=== PATIENT | female | born 1950 | race Caucasian/White ===

== ENCOUNTER → 2017-04-04 | Outpatient (CLI) | payer OTHER ==
[~2017-04-04] MED LIST: ASPI1TAB91 PO; BIOT1CHW PO; BUPR100T4 PO; FOLI1TAB4 PO; FOLI1TAB6 PO; HYDR-3366 PO; HYDR100P IM; HYDR5TAB64 PO; LEVO50TA4 PO; LEVO75TA3 PO; LIOT5TAB3 PO; LISI-519 PO; METF500T PO; METH2.5T PO; METO50TA PO; OMEP40CA2 PO; TEMA30CA PO; VENTAER INH; VIST25CA PO; VITA500T4 PO; ZOCO20TA PO
[2017-04-04 12:22] LABS: AUTOMATED NEUTROPHIL # 9.2 TH/MM3 (1.8-7.7); BASOPHIL % 0.1 % (0.0-2.0); EOSINOPHIL # 0.1 TH/MM3 (0-0.4); EOSINOPHIL % 0.9 % (0.0-4.0); HEMATOCRIT 35.9 % (35.0-46.0); HEMO FLAGS DIFF FINAL; LYMPH % 14.6 % (9.0-44.0); LYMPHOCYTE # 1.8 TH/MM3 (1.0-4.8); MEAN CELL VOLUME 97.3 FL (80.0-100.0); MEAN CORPUSCULAR HEMOGLOBIN 32.5 PG (27.0-34.0); MEAN CORPUSCULAR HGB CONC 33.4 % (32.0-36.0); MONO % 11.1 % (0.0-8.0); NEUT % 73.3 % (16.0-70.0); PLATELET COUNT 110 TH/MM3 (150-450); RED BLOOD COUNT 3.69 MIL/MM3 (4.00-5.30); RED CELL DISTRIBUTION WIDTH 15.9 % (11.6-17.2); WHITE BLOOD COUNT 12.6 TH/MM3 (4.0-11.0)
[2017-04-04 12:28] LABS: BACTERIA, URINE RARE /hpf; BLOOD, URINE NEG (NEG); COMMENT (UR) CULT NOT INDICATED; CULTURE IF INDICATED CULT NOT INDICATED; GLUCOSE,URINE NEG (NEG); KETONE, URINE NEG (NEG); NITRITE,URINE NEG (NEG); SQUAMOUS EPITHELIAL CELL URINE 1 /hpf (0-5); URINE COLOR YELLOW (YELLW/STRAW)
[2017-04-04 12:31] LABS: APTT (PATIENT) 25.3 SEC (24.3-30.1); PROTHROMBIN TIME - PATIENT 11.4 SEC (9.8-11.6)
[2017-04-04 12:47] LABS: ANION GAP 8 MEQ/L (5-15); BICARBONATE 27.5 MEQ/L (21.0-32.0); BLOOD UREA NITROGEN 9 MG/DL (7-18); CHLORIDE 98 MEQ/L (98-107); GLOMERULAR FILTRATION RATE 67 ML/MIN (>89); GLUCOSE,FASTING 60 MG/DL (74-99); POTASSIUM 4.7 MEQ/L (3.5-5.1); SODIUM (NA) 133 MEQ/L (136-145)
[2017-04-04 14:03] LABS: MRSA PCR NEGATIVE (NEGATIVE); STAPH AUREUS PCR NEGATIVE (NEGATIVE)
--- NOTE | 2017-04-04 14:14 | RADRPT ---
EXAM DATE/TIME: 04/04/2017 13:07 [facility] COMPARISON: No previous studies available for comparison. INDICATIONS : Pre op cardiac surgery. MEDICAL HISTORY : Rheumatoid arthritis. Osteoarthritis. Hypercholesterolemia. Hypertension. GERD. Thyroid disease. Bulg ing disk. Lumbar herniation. Brain aneurysm. Aortic stenosis. TIA. Chronic kidney disease. Diabetes. Right lunch nodule. SURGICAL HISTORY : Tonsillectomy. Hysterectomy. Right breat lumectomy. ENCOUNTER: Initial ACUITY: 1 day PAIN SCORE: 2/10 LOCATION: Bilateral neck PEAK SYSTOLIC VELOCITIES (cm/sec): ICA/CCA RATIO: Right: 2.4 Left: 1.2 ICA: Right: 100 Left: 83 CCA: Right: 42 Left: 69 ECA: Right: 0 Left: 78 VERTEBRAL: Right: 125 antegrade Left: 69 antegrade Elevated flow velocities and ICA/CCA ratios have been found to correlate with increased degrees of vessel stenosis, calculated as percentage of diameter relative to a normal segment of distal ICA/CCA FINDINGS: RIGHT CAROTID: Diffuse common carotid artery calcifications with one or plaque extending from the bulb to the origin of the internal and external carotid arteries. There is occlusion of the right external carotid arminda ry origin. There is associated increased velocities and ratio consistent with moderate, 50-69% stenos is. LEFT CAROTID: Moderate plaque extending to the origin of the internal and external carotid arteries. Flow is demons trated in the external carotid artery. There is resultant mild, less than 50%, stenosis of the consultant internship al carotid origin. VERTEBRAL ARTERIES: Antegrade flow is seen in both vertebral arteries. Asymmetrical velocities in the vertebral arteries may reflect more proximal vertebral artery lesion. MISCELLANEOUS: None. CONCLUSION: 1. Diffuse carotid artery calcifications with bulky plaque in the carotid bulbs extending to the inte rnal and external carotid artery origins. There is occlusion of the right external carotid artery. 2. Moderate, 50-69%, stenosis of the right internal carotid artery. 3. Mild, less than 50%, stenosis of the left internal carotid artery. 4. Asymmetrical vertebral artery velocities reflective of some degree of proximal vertebral artery st enosis. Paco Murphy MD on April 04, 2017 at 14:07 Board Certified Radiologist. This report was verified electronically.
--- NOTE | 2017-04-04 14:28 | RADRPT ---
EXAM DATE/TIME: 04/04/2017 13:49 [facility] COMPARISON: No previous studies available for comparison. INDICATIONS : Pre-op valve replacement. Evaluate for pneumonia, pneumothorax, and communicable diseases. MEDICAL HISTORY : None. SURGICAL HISTORY : None. ENCOUNTER: Initial ACUITY: 1 day PAIN SCORE: 0/10 LOCATION: Bilateral chest FINDINGS: PA and lateral views of the chest demonstrate the lungs to be symmetrically aerated without evidence of mass, infiltrate or effusion. The cardiomediastinal contours are unremarkable. Surgical clips in the right axilla. Osseous structures are intact. CONCLUSION: 1. No acute cardiopulmonary disease. Paco Murphy MD on April 04, 2017 at 14:26 Board Certified Radiologist. This report was verified electronically.
[2017-04-04 16:55] LABS: HEMOGLOBIN A1a 0.9 %; HEMOGLOBIN A1b 0.8 %; HEMOGLOBIN Ao 87.3 %; HEMOGLOBIN F 0.9 %; HEMOGLOBIN LA1C 1.7 %; HEMOGLOBIN P3 3.2 %
--- NOTE | 2017-04-05 14:36 | EKG ---
Date Performed: 04/04/2017 Time Performed: 11:25:54 PTAGE: 67 years EKG: Sinus rhythm NORMAL ECG PREVIOUS TRACING : 06/12/2016 12.36 DOCTOR: Robbi Paz Interpretating Date/Time 04/05/2017 14:34:03
--- NOTE | 2017-04-07 08:27 | RSPPFT ---
DATE OF PROCEDURE: 04/04/17 COMMENTS: The forced vital capacity, FEV1, FEV1/FVC ratio and FEF 25-75 are all normal. IMPRESSION: This is a normal pulmonary function study.
== END ==
LOC: CPRE 10:55
PROVIDERS: ATTEND Thoracic Surgery (Cardiothoracic Vascular Surgery)
DX: Z01.810 Encounter for preprocedural cardiovascular examination (principal); Z01.811 Encounter for preprocedural respiratory examination; Z01.812 Encounter for preprocedural laboratory examination; I35.0 Nonrheumatic aortic (valve) stenosis; E11.65 Type 2 diabetes mellitus with hyperglycemia; I50.31 Acute diastolic (congestive) heart failure
CPT/HCPCS: 36415; 71020; 80048; 81001; 83036; 85025; 85610; 85730; 86850; 86900; 86901; 87640; 87641; 93005; 93880; 94010

== ENCOUNTER → 2017-04-12 | Outpatient (CLI) | payer OTHER ==
[~2017-04-12] MED LIST changes: -FOLI1TAB4 PO; -HYDR100P IM; -HYDR5TAB64 PO; +IOHEXOL 350 MG/ML 10 ML VIAL (for RAD DIAG) IVCONTRAST ONE; -LEVO75TA3 PO; -VITA500T4 PO
--- NOTE | 2017-04-12 11:20 | RADRPT ---
EXAM DATE/TIME: 04/12/2017 09:22 [facility] COMPARISON: No previous studies available for comparison. INDICATIONS : Pre op TAVR. IV CONTRAST: 81 cc Omnipaque 350 (iohexol) IV RADIATION DOSE: 10.74 CTDIvol (mGy) MEDICAL HISTORY : Cardiovascular disease. Carcinoma, breast. SURGICAL HISTORY : Hysterectomy. Right breast lumpectomy. ENCOUNTER: Initial ACUITY: 1 day PAIN SCALE: 0/10 LOCATION: chest TECHNIQUE: Volumetric scanning was performed using a multi-row detector CT scanner. The data was post processed with a variety of visualization algorithms including full volume maximum intensity projection, multi -planar sliding thin slab reformation, curved planar reformation, and surface rendering techniques. Using automated exposure control and adjustment of the mA and/or kV according to patient size, radiat ion dose was kept as low as reasonably achievable to obtain optimal diagnostic quality images. DIC OM format image data is available electronically for review and comparison. FINDINGS: CARDIAC: Left main and LAD calcifications are noted, significant in the LAD. Moderate mid circumflex disease. Small right coronary moderate right mid coronary disease. AORTIC ROOT/VALVE: Calcification present at the aortic root diameter 2.6 cm. THORACIC AORTA: Calcification at the origin of the right innominate and left subclavian. Not felt to be hemodynamica lly significant. ABDOMINAL AORTA: Moderate plaque distal aorta extending into both iliac bifurcations. The celiac and SMA are widely p atent. 2 renal arteries on the right, one on the left. The distal aorta measures 1.3 cm x 1.2 cm an d is densely calcified. RIGHT COMMON ILIAC: The right common iliac is small, densely calcified with the 5 mm lumen. The external iliac is small measuring 4 mm. The right common femoral is all but occluded. LEFT COMMON ILIAC: Similar findings are present on the left the densely calcified common iliac. Similar findings are se en in the external iliac and common femoral the left. THORAX: 1.5 cm suspicious consolidative area left lung. The right lung is clear. ABDOMEN: The liver, spleen, pancreas, adrenals and kidneys are unremarkable PELVIS: Diverticuli sigmoid colon. CONCLUSION: Tenuous percutaneous access from below with small common femorals to distal aorta. Inflow to the low er extremities his tenuous worse on the right. 1.5 cm suspicious consolidative area left lung, infiltrate versus neoplasm. No prior films of compar kezia. Kyle Kaur MD FACR on April 12, 2017 at 11:06 Board Certified Radiologist. This report was verified electronically.
== END ==
LOC: HRAD 08:18
PROVIDERS: ATTEND Thoracic Surgery (Cardiothoracic Vascular Surgery)
DX: I35.0 Nonrheumatic aortic (valve) stenosis (principal); I50.30 Unspecified diastolic (congestive) heart failure
CPT/HCPCS: 74174; Q9967; 76937

== ENCOUNTER 2017-05-17 09:53 | Inpatient (IN) | payer OTHER, MEDICARE ==
[~2017-05-17] VITALS: Ht 152.4 cm; Wt 64.3 kg
[~2017-05-17 09:53] MED LIST changes: -ASPI1TAB91 PO; +ASPI81TA16 PO; -IOHEXOL 350 MG/ML 10 ML VIAL (for RAD DIAG) IVCONTRAST ONE
[2017-05-17] MEDS ORDERED: MUPIROCIN 2% OINT 1 APPLIC/GM SYRINGE EACH NARE PRN (10:15)
[2017-05-17] MEDS ORDERED: SODIUM CHLOR 0.9% 1000 ML 1,000 ML IV SCH (10:15)
[2017-05-17] MEDS ORDERED: ASPIRIN 325 MG TAB PO SCH (10:15)
[2017-05-17] MEDS ORDERED: CHLORHEXIDINE GLUCONATE 2 % 1 PACK (2 CLOTHS) TOPICAL PRN (10:15)
[2017-05-17] MEDS ORDERED: ceFAZolin 2 GM PREMIX 50 ML IV PRN (10:15)
[2017-05-17] MEDS ORDERED: POVIDONE IODINE 5% (ANTISEPSIS KIT) EACH NARE PRN (10:15)
[2017-05-17 10:18] VITALS: BP 170/68; PULSE 61; RESP 18; TEMP 97.9; O2SAT 99
[2017-05-17] MEDS ORDERED: SPIR25TA PO (10:25)
[2017-05-17] MEDS ORDERED: MECL-62 PO (10:25)
[2017-05-17] MEDS ORDERED: ATOR40TA16 PO (10:25)
[2017-05-17] MEDS ORDERED: VENL75CA44 PO (10:25)
[2017-05-17 10:57] LABS: AUTOMATED NEUTROPHIL # 4.1 TH/MM3 (1.8-7.7); BASOPHIL % 0.6 % (0.0-2.0); EOSINOPHIL # 0.1 TH/MM3 (0-0.4); EOSINOPHIL % 1.2 % (0.0-4.0); HEMO FLAGS DIFF FINAL; LYMPH % 28.6 % (9.0-44.0); MEAN CELL VOLUME 98.5 FL (80.0-100.0); MEAN CORPUSCULAR HEMOGLOBIN 33.1 PG (27.0-34.0); MEAN CORPUSCULAR HGB CONC 33.6 % (32.0-36.0); MONO % 10.1 % (0.0-8.0); NEUT % 59.5 % (16.0-70.0); PLATELET COUNT 133 TH/MM3 (150-450); RED BLOOD COUNT 3.96 MIL/MM3 (4.00-5.30); WHITE BLOOD COUNT 6.9 TH/MM3 (4.0-11.0)
[2017-05-17 11:08] LABS: APTT (PATIENT) 26.6 SEC (24.3-30.1); PROTHROMBIN TIME - PATIENT 11.3 SEC (9.8-11.6)
[2017-05-17 11:18] LABS: BICARBONATE 29.6 MEQ/L (21.0-32.0)
--- NOTE | 2017-05-17 11:19 | MH ---
cc: GENARO DOWNEY DATE OF ADMISSION: 05/17/2017 DATE OF : 1950 REASON FOR ADMISSION Elective transcutaneous aortic valve replacement. HISTORY OF PRESENT ILLNESS 67-year-old female with past medical history significant for atrial fibrillation on chronic oral anticoagulation, COPD, rheumatoid arthritis on methotrexate, severe peripherovascular disease and severe aortic stenosis. The patient for the last couple of months has been having progressing complaints of shortness of breath on minimal exertion. She has a known history of a cardiac murmur and has been evaluated by Dr. Salinas. She underwent an echocardiogram which revealed severe aortic stenosis and cardiac catheterization demonstrated normal coronary arteries. She was referred to CT surgery for conventional AVR and after thorough evaluation by Dr. Iyer she was deemed to be a poor AVR candidate given STS score, co-morbidities, severe PAD and methotrexate dependent RA. Thus she is here today for a TAVR. REVIEW OF SYSTEMS Negative except for what is mentioned in the HPI. PAST MEDICAL HISTORY 1. Atrial fibrillation. 2. Anxiety. 3. Aortic stenosis. 4. Chronic pain syndrome. 5. Cerebrovascular disease. 6. COPD. 7. Depression. 8. Diabetes mellitus. 9. GERD. 10. Hyperlipidemia. 11. Hypothyroidism. 12. Mitral regurgitation. 13. Osteoarthritis. 14. Rheumatoid arthritis. 15. Sleep apnea. PAST SURGICAL HISTORY 1. Atrial fibrillation status post ablation. 2. Appendectomy. 3. Breast lumpectomy. 4. Cataract removal. 5. Cholecystectomy. 6. Hysterectomy. 7. Tonsillectomy. ALLERGIES CODEINE. SOCIAL HISTORY Former smoker. Denies alcohol use or illicit drug use. FAMILY HISTORY No pertinent family history. PHYSICAL EXAMINATION VITAL SIGNS: Temperature 97, respiratory rate 20, heart rate 17, blood pressure 120/80. O2 sat 100% on room air. GENERAL: Awake, alert, oriented x3, in no acute distress. NECK: No JVD. No carotid bruits. HEART: Regular rate and rhythm. There is a 3/6 systolic ejection murmur with late-peaking radiating to the carotids. LUNGS: Clear to auscultation bilaterally. ABDOMEN: Benign. EXTREMITIES: No cyanosis or edema. Pulses throughout. TAVR WORK-UP -STS score of 3%, and frailty 1/4. -EKG normal sinus rhythm. -PFTs normal. -Echocardiogram shows an aortic valve velocity of 4.1, mean gradient of 48, calculated valve area of 0.73, ejection fraction 60%. -Left heart cath showed nonobstructive coronary artery disease. -TAVR CTA shows a short annulus diameter of 19, a long annulus diameter of 23, an area of 348 and a perimeter of 66.5. The sinus of Valsalva diameter is 30. The STJ is 25. Both coronary heights are more than 10. She has a trileaflet aortic valve. There is no calcification in the LVOT or the STJ. -Iliacs: There is significant PAD with a minimal luminal diameter on the left of 3.4 and on the right of 3. -Subclavian: The left subclavian artery is an adequate size vessel with a minimal diameter of 5.8 and minimal calcification. ASSESSMENT AND PLAN 67-year-old female with a history of severe symptomatic aortic stenosis with NYHA III sx, presented today for elective alternative access transcutaneous aortic valve replacement. After thorough evaluation she was deemed to be an intermediate risk for open AVR and was scheduled for TAVR. The risks and benefits of TAVR including but not limited to neurovascular trauma, bleeding, acute kidney injury, stroke, permanent pacemaker placement and have been explained to the patient. The patient understands the risks and she is willing to proceed. Plan: -26mm Medtronic R valve -Left subclavian Access Genaro Downey MD, MPH, [facility] BIOMEDICAL EQUIPMENT TECHNICIAN/BT /10:49 AM /11:00 AM [facility]
[2017-05-17 11:22] LABS: POTASSIUM 4.8 MEQ/L (3.5-5.1)
[2017-05-17] MEDS ORDERED: HEPARIN-NS/PF INJ 1,500 ML ONE (12:35)
[2017-05-17] MEDS ORDERED: IOHEXOL 350 MG/ML 100 ML BTL (for RAD DIAG) OTHER ONE (13:42)
[2017-05-17] MEDS ORDERED: METFORMIN HOLD POST IV CONTRAST SCH (13:42)
[2017-05-17] MEDS ORDERED: BUPIVACAINE HCL PF 0.5% 10 ML VIAL INFIL ONE (15:05)
[2017-05-17 15:30] VITALS: BP 83/52; PULSE 94; RESP 12; TEMP 97.8; O2SAT 99
--- NOTE | 2017-05-17 15:54 | PD.OP ---
cc: Delio Vidales MD; Evan Goodwin MD; Mary Iyer MD; Robbi Paz MD Operative Report Date of Surgery: May 17, 2017 Preoperative Diagnosis: (1) Aortic stenosis (2) Diastolic CHF due to valvular disease Postoperative Diagnosis: same Procedure: Transcatheter aortic valve replacement with a 26 Evolut R Corevalve Left subclavian artery approach and cutdown Right femoral arterial and venous percutaneous access Aortography Fluoroscopy Anesthesia: Dr. Harvey Surgeon: Mary Iyer Co-surgeon - Dr. Elder General Pediatrician(s): Dr. Jackson Goodwin Operation and Findings: The risks, benefits, complications, treatment options, and expected outcomes were discussed with the patient. The possibilities of reaction to medication, pulmonary aspiration, perforation of viscus, bleeding, recurrent infection, the need for additional procedures, failure to diagnose a condition, and creating a complication requiring transfusion or operation were discussed with the patient. The patient concurred with the proposed plan, giving informed consent. The site of surgery properly noted/marked. The patient was taken to hybrid operating room, identified as Berenice Rosario and the procedure verified as Transcatheter Aortic Valve Replacement. A Time Out was held and the above information confirmed. Standard monitoring lines and Ro catheter were placed. General anesthesia was induced. The patient was prepped and draped in a sterile fashion. Initially, right femoral arterial and venous access was acquired using a Seldinger percutaneous technique. The details of this procedure were dictated under separate note by cardiology. Once a temporary transvenous pacemaker wire was placed in the right ventricular apex and tested, a left subclavian cut down was performed. Electrocautery was used to obtain hemostasis and carry the dissection down through the subcutaneous tissue. The left subclavian artery was isolated proximally and distally. A separate counter incision was performed distally to allow for better angulation and orientation of the sheath and delivery device for the valve. The patient was heparinized such that the ACT was greater than 300 second. A pigtail was placed in the non coronary cusp through the right femoral artery. The implant angle was defined using aortography. The left subclavian artery was accessed using a needle followed by a guidewire under fluoroscopic guidance. A 12F sheath was inserted followed by a wire exchange with an Aplatz super stiff wire. The sheath was then exchanged for a AL1 catheter to cross the aortic valve. Once the valve was crossed, a Confida wire was placed in the LV apex. The Corevalve delivery system and sheath were then inserted into the left subclavian artery under fluoroscopic guidance. A 26 Corevalve Evolut R transcatheter aortic valve was then positioned in the annulus and deployed with the patient being paced at 120 beats per minute. Following deployment, the valve apparatus was withdrawn and arch aortography and VARUN were performed to assess the valve. The valve had no significant perivalvular leaks. Gradients were then measured and the sheath was slowly withdrawn to the proximal subclavian artery under fluoroscopic guidance. The sheath was withdrawn under direct vision and the left subclavian artery was clamped. The artery was then repaired using a 5-0 Prolene suture. Flow was then re-established and protamine was administered. The subcutaneous tissue was closed using a running 2-0 Vicryl suture. The skin was closed with 4-0 Monocryl. Sterile dressings were placed. At the end of the operation, all sponge, instruments, and needle counts were correct. The patient was transferred to the CVICU in stable condition. Implants: 26 Corevalve Evolut R tissue valve Complications: none Disposition: to CVICU in stable condition Mary Iyer MD May 17, 2017 15:54
[2017-05-17 16:00] VITALS: BP 112/67; PULSE 93; PULSE 94; RESP 12; TEMP 97.7; O2SAT 99
[2017-05-17] MEDS ORDERED: MISC INFORMATION OTHER ONE (16:00)
[2017-05-17] MEDS ORDERED: SODIUM CHLOR 0.9% 1000 ML INJ 1,000 ML IV SCH (16:00)
[2017-05-17] MEDS ORDERED: CLOPIDOGREL 300 MG TAB PO ONE ×2 (16:00→16:15)
[2017-05-17] MEDS ORDERED: GLUCAGON 1 MG/ML VIAL OTHER PRN (16:00)
[2017-05-17] MEDS ORDERED: ACETAMINOPHEN 325 MG TAB PO PRN (16:00)
[2017-05-17] MEDS ORDERED: DEXTROSE 50% IN WATER 50 ML VIAL(D50) IV PUSH PRN (16:00)
[2017-05-17] MEDS: ASPIRIN 81 MG CHEW TAB PO SCH (16:15)
[2017-05-17] MEDS: ACETAMINOPHEN/HYDROcodone 325 MG/10 MG TAB PO SCH ×2 (16:43→21:42)
--- NOTE | 2017-05-17 17:04 | PD.PROCEDR ---
Procedure Note Procedure Procedure: Transesophageal Echocardiography Diagnosis: Severe aortic stenosis Indications: Perioperative planning for transfer catheter aortic valve replacement Consent: Obtained Anesthesia: General endotracheal anesthesia Description of the Procedure: The patient was sedated and mechanically ventilated. The echo probe was inserted easily and without resistance. At the conclusion of the procedure, the echo probe was removed. Please see detailed echocardiogram report for formal findings. Preliminary Findings (not confirmed): Pre-procedure: 1) Normal biventricular function 2) Severe aortic stenosis 3) mild aortic regurgitation 4) mild mitral regurgitation 5) continuous [id number] intra-atrial shunt by color flow Doppler. 6) no pericardial effusion Post-procedure: 1) s/p successful placement of transcatheter aortic valve 2) no evidence of bioprosthetic valve stenosis 3) no perivalvular leak 4) [id number] mitral regurgitation 5) normal biventricular function 6) no pericardial effusion 7) views of the ascending, arch, and descending aorta without evidence of dissection. The patient tolerated the procedure well. There were no immediate complications noted. I personally performed the procedure. Dennis Rubin MD May 17, 2017 17:04
--- NOTE | 2017-05-17 17:19 | PD.CONS ---
[facility] Service Critical Care Medicine Consult Requested By Dr. Elder Reason for Consult perioperative management of comorbid medical conditions Primary Care Physician Non-Staff History of Present Illness This is a 67-year-old female with a past medical history of atrial fibrillation , COPD, rheumatoid arthritis, and severe symptomatically or stenosis. She presents for elective transcatheter aortic valve replacement. Placement was performed via left subclavian cutdown with subclavian artery access for valve replacement. In addition, a small right femoral artery access was used for pigtail catheter. Intraoperative events were complicated. She arrives to the CVICU extubated, arousing from anesthesia. Due to her also from anesthesia no additional information is obtainable from the patient. Review systems is unobtainable due to her somnolence. Review of Systems ROS Limitations: Clinical Condition, Altered Mental Status ROS Arousing from anesthesia Past Family Social History Allergies: Coded Allergies: codeine (Unverified Allergy, Severe, 05/17/17) Past Medical History Atrial fibrillation Anxiety Aortic stenosis Chronic pain syndrome Cerebrovascular disease COPD Depression Diabetes GERD Hyperlipidemia Hypothyroidism Mitral regurgitation Osteoarthritis Rheumatoid arthritis Sleep apnea Past Surgical History Atrial fibrillation Appendectomy Breast lumpectomy Cataract surgery Cholecystectomy Hysterectomy Tonsillectomy Reported Medications Venlafaxine ER 24 HR (Venlafaxine HCl) 75 Mg Cap 75 Mg PO DAILY Spironolactone 25 Mg Tab 25 Mg PO DAILY Meclizine (Meclizine HCl) 25 Mg Tab 25 Mg PO TID PRN Atorvastatin (Atorvastatin Calcium) 40 Mg Tab 40 Mg PO HS Metformin (Metformin HCl) 500 Mg Tab 500 Mg PO BIDPC Levothyroxine (Levothyroxine Sodium) 50 Mcg Tab 50 Mcg PO DAILY Folic Acid 1 Mg Tablet 1 Mg PO DAILY Aspirin Adult Low Strength (Aspirin) 81 Mg Tabdr 81 Mg PO DAILY Omeprazole 40 Mg Cap 40 Mg PO DAILY [place] (Hydrocodone-Acetaminophen) 10-325 Mg Tab 1 Tab PO QID Bupropion HCl 100 Mg Tab 100 Mg PO BID Ventolin Hfa 18 GM Inh (Albuterol Sulfate) 90 Mcg/Act Aer 2-3 Puff INH Q6H PRN Temazepam 30 Mg Cap 30 Mg PO HS Methotrexate 2.5 Mg Tab 20 Mg PO WEEKLY Lisinopril 5 Mg Tab 5 Mg PO DAILY Active Ordered Medications See MAR Family History Reviewed in the chart and found be noncontributory to her acute illness Social History Former smoker. Denies EtOH Physical Exam Vital Signs Vital Signs Date Time Temp Pulse Resp B/P (MAP) Pulse Ox O2 Delivery O2 Flow Rate FiO2 05/17/17 10:18 97.9 61 18 170/68 (102) 99 Physical Exam GENERAL: Elderly female, lying in bed, arousing from anesthesia, no acute distress HEENT: Normocephalic. Atraumatic. Pupils equal, round, reactive, conjugate. Mucous membranes are moist NECK: Trachea is midline. There is no JVD. Right IJ sheath with transvenous pacer in place CHEST: Small incision over left anterior chest just underneath the clavicle which is clean dry and intact. Nasal cannula oxygen. Unlabored. Equal chest rise. CARDIOVASCULAR: Normal rate, regular rhythm. ABDOMEN: Soft, nontender, nondistended. No guarding. MUSCULOSKELETAL: Pulses 2+. No peripheral edema. Right groin with dressing intact, no evidence of hematoma NEUROLOGICAL: RASS -2. Arousing from anesthesia. Moves all extremities. No focal deficits. Laboratory Laboratory Tests Test 05/17/17 10:30 White Blood Count 6.9 Red Blood Count 3.96 Hemoglobin 13.1 Hematocrit 39.0 Mean Corpuscular Volume 98.5 Mean Corpuscular Hemoglobin 33.1 Mean Corpuscular Hemoglobin Concent 33.6 Red Cell Distribution Width 15.0 Platelet Count 133 Mean Platelet Volume 10.6 Neutrophils (%) (Auto) 59.5 Lymphocytes (%) (Auto) 28.6 Monocytes (%) (Auto) 10.1 Eosinophils (%) (Auto) 1.2 Basophils (%) (Auto) 0.6 Neutrophils # (Auto) 4.1 Lymphocytes # (Auto) 2.0 Monocytes # (Auto) 0.7 Eosinophils # (Auto) 0.1 Basophils # (Auto) 0.0 CBC Comment DIFF FINAL Differential Comment Prothrombin Time 11.3 Prothromb Time International Ratio 1.0 Activated Partial Thromboplast Time 26.6 Blood Urea Nitrogen 10 Creatinine 0.76 Random Glucose 83 Calcium Level 9.1 Sodium Level 135 Potassium Level 4.8 Chloride Level 100 Carbon Dioxide Level 29.6 Anion Gap 5 Estimat Glomerular Filtration Rate 76 Result Diagram: 05/17/17 1030 05/17/17 1030 Assessment and Plan Assessment and Plan Assessment: 67-year-old female postop day 0 status post transcutaneous aortic valve replacement. We'll admit to ICU and monitor closely overnight. s/p TAVR 05/17 with left subclavian access - neurovascular checks - close uop monitoring - mivf - anticoagulation per Dr. Eledr. Hypertension - goal sbp 120 - 180. - add back anti-hypertensives as needed - hold Lisinopril - hold spironolactone COPD - prn nebs - aggressive pulmonary toilet - wean fio2 for goal spo2 > 90% Hyperlipidemia - continue home statin Depression - continue home Wellbutrin - continue home Effexor Chronic pain syndrome - continue home [place]. may require increased opiate pain medication to cover new acute pain. Hypothyroidism - continue home Synthroid GERD - continue ppi Diabetes Mellitus - SSI if needed. - hold metformin. Critical care medicine will continue to follow patient while in the CVICU. Dennis Rubin MD May 17, 2017 17:19
[2017-05-17] MEDS ORDERED: MECLIZINE HCL 25 MG TAB PO PRN (18:00)
[2017-05-17 19:03] LABS: POTASSIUM 4.4 MEQ/L (3.5-5.1)
[2017-05-17 20:00] VITALS: BP 113/64; PULSE 94; RESP 20; TEMP 98.2; O2SAT 98
--- NOTE | 2017-05-17 20:23 | MB ---
cc: SRINIVAS AGUSTIN M.D. DATE OF CONSULTATION 05/17/2017 Electrophysiology consult REASON FOR CONSULTATION Intraventricular conduction delay, status post TAVR for evaluation. HISTORY OF THE PRESENT ILLNESS Mrs. Rosario is a 67-year-old female with history of atrial fibrillation, aortic stenosis, previous CVA, diabetes mellitus, high blood pressure, hyperlipidemia, status post elective transcutaneous aortic valve replacement. She has some interventricular conduction delay. She has temporary pacemaker. I was consulted for evaluation and management. The chart was reviewed. The patient was evaluated. ALLERGIES CODEINE. SOCIAL HISTORY Negative for smoking and drinking. FAMILY HISTORY Noncontributory to her current medical condition. MEDICATIONS Patient is currently on: 1. Ancef. 2. Aspirin 325 mg a day. 3. Lipitor 40 mg at bedtime. 4. Wellbutrin 100 milligrams twice a day. 5. Plavix 75 milligrams daily. 6. Folic acid. 7. Levoxyl 50 micrograms a day. 8. Meclizine. 9. Effexor 75 milligrams daily. REVIEW OF SYSTEMS Currently she refers no chest pain. She refers right shoulder pain in a left the right shoulder pain, but no fever. PHYSICAL EXAMINATION GENERAL: Alert, fully oriented. VITAL SIGNS: Her blood pressure currently is on the monitor is 110/67, pulse 86, respiratory rate 18. LUNGS: Ventilated. CARDIOVASCULAR: S1-S2 regular. No gallop or murmur. The right infraclavicular area with a central line access. ABDOMEN: Soft. No mass. No bruits. EXTREMITIES: No edema. Electrocardiogram sinus rhythm and apparent first-degree AV block. No significant ST and T-wave changes. LABORATORY DATA Hemoglobin is 13.1, white blood cell 6.9. Potassium 4.8. Creatinine 0.76. INR 1.0. ASSESSMENT AND RECOMMENDATIONS Mrs. Rosario had recent TAVR. She is in sinus rhythm. No significant interventricular conduction delay. No bundle-branch block. She has a temporary pacemaker. I did reprogram the device to VVI 40 and increase the sensing. For now observation. If stable remove the temporary pacer in the morning. Further decision and management by the managing team. Case discussed with the patient's family. My recommendation is to continue with current management. No need for pacemaker. I will follow her during hospitalization if necessary. MD EVE CeeKK /5:37 PM /8:02 PM
[2017-05-17] MEDS ORDERED: ATORVASTATIN 40 MG TAB PO SCH (21:00)
[2017-05-17] MEDS: buPROPion HCL 100 MG TAB PO SCH (21:48)
[2017-05-17 22:03] VITALS: O2SAT 97
[2017-05-18] VITALS (9 sets, daily range): BP systolic 99–122; BP diastolic 50–69; PULSE 77–92; RESP 16–20; TEMP 98.1–98.6; O2SAT 95–99
[2017-05-18 04:32] LABS: HEMATOCRIT 27.8 % (35.0-46.0); MEAN CELL VOLUME 97.9 FL (80.0-100.0); MEAN CORPUSCULAR HEMOGLOBIN 33.2 PG (27.0-34.0); MEAN CORPUSCULAR HGB CONC 33.9 % (32.0-36.0); PLATELET COUNT 76 TH/MM3 (150-450); RED BLOOD COUNT 2.84 MIL/MM3 (4.00-5.30); RED CELL DISTRIBUTION WIDTH 15.1 % (11.6-17.2); WHITE BLOOD COUNT 6.7 TH/MM3 (4.0-11.0)
[2017-05-18 04:38] LABS: REVIEW FLAG FINAL
[2017-05-18 04:51] LABS: ALT (GPT) 76 U/L (10-53); ANION GAP 10 MEQ/L (5-15); AST (GOT) 67 U/L (15-37); BICARBONATE 25.1 MEQ/L (21.0-32.0); BLOOD UREA NITROGEN 7 MG/DL (7-18); CHLORIDE 101 MEQ/L (98-107); GLOMERULAR FILTRATION RATE 76 ML/MIN (>89); POTASSIUM 4.3 MEQ/L (3.5-5.1); SODIUM (NA) 136 MEQ/L (136-145)
[2017-05-18 04:53] LABS: ALKALINE PHOSPHATASE 52 U/L (45-117); TOTAL BILIRUBIN ADULT 0.4 MG/DL (0.2-1.0)
[2017-05-18] MEDS ORDERED: LEVOTHYROXINE SODIUM 50 MCG TAB PO SCH (06:00)
--- NOTE | 2017-05-18 07:52 | PD.CARD.PN ---
Subjective Subjective Remarks no overnight events occasional PVC's EKG unchanged this AM No CV complaints Objective Medications Current Medications Medications (Trade) Dose Ordered Sig/Leif Route Start Time Stop Time Status Last Admin Cefazolin Sodium/ Dextrose 50 ml @ 100 mls/hr [employer] PRN IV 05/17/17 10:15 05/20/17 10:14 05/17/17 13:30 (Betadine 5% Antisepsis Kit) 1 applic [employer] PRN EACH NARE 05/17/17 10:15 05/20/17 10:14 05/17/17 11:15 (Bactroban Nasal 2% Oint) 1 applic [employer] PRN EACH NARE 05/17/17 10:15 05/20/17 10:14 (Chlorhexidine 2% Cloth) 3 pack [employer] PRN TOPICAL 05/17/17 10:15 05/20/17 10:14 05/17/17 11:15 (Aspirin) 325 mg [employer] PO 05/17/17 10:15 05/20/17 10:14 05/17/17 11:15 (Tylenol) 650 mg Q4H PRN PO 05/17/17 16:00 05/18/17 15:59 (Aspirin Chew) 81 mg DAILY PO 05/17/17 16:00 05/17/17 16:15 (Plavix) 75 mg DAILY PO 05/18/17 09:00 (D50w (Vial) Inj) 50 ml UNSCH PRN IV PUSH 05/17/17 16:00 (Glucagon Inj) 1 mg UNSCH PRN OTHER 05/17/17 16:00 (Lipitor) 40 mg HS PO 05/17/17 21:00 05/17/17 21:43 (Wellbutrin) 100 mg BID PO 05/17/17 21:00 05/17/17 21:48 (Folate) 1 mg DAILY PO 05/18/17 09:00 (Mcgregor 10-325 Mg) 1 tab QID PO 05/17/17 18:00 05/17/17 21:42 (Synthroid) 50 mcg DAILY@0600 PO 05/18/17 06:00 05/18/17 05:43 (Antivert) 25 mg TID PRN PO 05/17/17 18:00 (Effexor Xr) 75 mg DAILY PO 05/18/17 09:00 (Protonix) 40 mg DAILY PO 05/18/17 09:00 Miscellaneous Information HOLD METFORMIN FOR... Q24H .XX 05/17/17 13:42 05/19/17 13:41 Vital Signs / I&O Vital Signs Date Time Temp Pulse Resp B/P (MAP) Pulse Ox O2 Delivery O2 Flow Rate FiO2 05/18/17 06:00 96 Room Air 05/18/17 04:00 92 05/18/17 04:00 94 Nasal Cannula 1.00 05/18/17 04:00 98.1 77 20 99/50 (66) 98 05/18/17 00:00 92 05/18/17 00:00 99 Nasal Cannula 2.00 05/18/17 00:00 92 18 99/56 (70) 99 05/17/17 22:42 18 05/17/17 22:03 97 Nasal Cannula 2.00 05/17/17 20:00 98.2 94 20 113/64 (80) 98 05/17/17 20:00 98 Nasal Cannula 2.00 05/17/17 20:00 94 05/17/17 16:00 94 05/17/17 16:00 94 05/17/17 16:00 99 Nasal Cannula 2.00 05/17/17 16:00 97.7 93 12 112/67 (82) 99 05/17/17 15:30 97.8 94 12 83/52 (62) 99 05/17/17 10:18 97.9 61 18 170/68 (102) 99 I/O 05/17/17 05/17/17 05/17/17 05/18/17 05/18/17 05/18/17 07:00 15:00 23:00 07:00 15:00 23:00 Intake Total 5036 ml 2039 ml Output Total 740 ml 2280 ml Balance 4296 ml -241 ml Intake Oral 240 ml 1400 ml IV Total 1296 ml 639 ml Other 3500 ml Output Urine Total 730 ml 2280 ml Estimated Blood Loss 10 ml # Bowel Movements 0 Physical Exam GENERAL: Well-nourished, well-developed patient. SKIN: Warm and dry. HEAD: Normocephalic. EYES: No scleral icterus. No injection or drainage. NECK: Supple, trachea midline. No JVD or lymphadenopathy. CARDIOVASCULAR: Regular rate and rhythm without murmurs, gallops, or rubs. Bilateral rales RESPIRATORY: Breath sounds equal bilaterally. No accessory muscle use. GASTROINTESTINAL: Abdomen soft, non-tender, nondistended. EXTREMITIES: No cyanosis, or +edema. NEUROLOGICAL: Awake, alert, and oriented x 3. Non-focal. Laboratory Laboratory Tests Test 05/17/17 10:30 05/17/17 18:30 05/18/17 04:10 White Blood Count 6.9 TH/MM3 6.7 TH/MM3 Red Blood Count 3.96 MIL/MM3 2.84 MIL/MM3 Hemoglobin 13.1 GM/DL 9.4 GM/DL Hematocrit 39.0 % 27.8 % Mean Corpuscular Volume 98.5 FL 97.9 FL Mean Corpuscular Hemoglobin 33.1 PG 33.2 PG Mean Corpuscular Hemoglobin Concent 33.6 % 33.9 % Red Cell Distribution Width 15.0 % 15.1 % Platelet Count 133 TH/MM3 76 TH/MM3 Mean Platelet Volume 10.6 FL 10.1 FL Neutrophils (%) (Auto) 59.5 % Lymphocytes (%) (Auto) 28.6 % Monocytes (%) (Auto) 10.1 % Eosinophils (%) (Auto) 1.2 % Basophils (%) (Auto) 0.6 % Neutrophils # (Auto) 4.1 TH/MM3 Lymphocytes # (Auto) 2.0 TH/MM3 Monocytes # (Auto) 0.7 TH/MM3 Eosinophils # (Auto) 0.1 TH/MM3 Basophils # (Auto) 0.0 TH/MM3 CBC Comment DIFF FINAL Differential Comment Prothrombin Time 11.3 SEC Prothromb Time International Ratio 1.0 RATIO Activated Partial Thromboplast Time 26.6 SEC Blood Urea Nitrogen 10 MG/DL 9 MG/DL 7 MG/DL Creatinine 0.76 MG/DL 0.56 MG/DL 0.76 MG/DL Random Glucose 83 MG/DL 124 MG/DL 173 MG/DL Calcium Level 9.1 MG/DL 7.5 MG/DL 7.9 MG/DL Sodium Level 135 MEQ/L 136 MEQ/L 136 MEQ/L Potassium Level 4.8 MEQ/L 4.4 MEQ/L 4.3 MEQ/L Chloride Level 100 MEQ/L 101 MEQ/L 101 MEQ/L Carbon Dioxide Level 29.6 MEQ/L 25.0 MEQ/L 25.1 MEQ/L Anion Gap 5 MEQ/L 10 MEQ/L 10 MEQ/L Estimat Glomerular Filtration Rate 76 ML/MIN 109 ML/MIN 76 ML/MIN Total Protein 5.0 GM/DL Albumin 2.6 GM/DL Alkaline Phosphatase 52 U/L Aspartate Amino Transf (AST/SGOT) 67 U/L Alanine Aminotransferase (ALT/SGPT) 76 U/L Total Bilirubin 0.4 MG/DL Assessment and Plan Problem List: (1) Aortic stenosis ICD Codes: I35.0 - Nonrheumatic aortic (valve) stenosis Plan: 67 y/o F s/p Left Subclavian TAVR with a 26mm Evolut R. Afebrile and hemodynamically stable. Acute on chronic diastolic heart failure on exam. Drop in H/H dilutional. Will give IV Lasix this AM. Appreciate EP f/u and recs no tachy or fredy arrhythmias. Plan: 1. IV Lasix 20mg IV 2. PT/OT 3. Cont ASA and Plavix 4. D/C TPM 5. D/C Art Line 6. D/C IJ 7. Encourage ambulation and incentive spirometry 8. Tx to stepdown unit (2) Diastolic CHF due to valvular disease ICD Codes: I38 - Endocarditis, valve unspecified; I50.30 - Unspecified diastolic (congestive) heart failure (3) Anxiety associated with depression ICD Codes: F41.8 - Other specified anxiety disorders Status: Acute Problem Qualifiers (1) Aortic stenosis: Qualified Codes: I06.0 - Rheumatic aortic stenosis Delio Vidales MD May 18, 2017 07:51
[2017-05-18] MEDS: ACETAMINOPHEN/HYDROcodone 325 MG/10 MG TAB PO SCH ×2 (08:07→13:57)
[2017-05-18] MEDS: ASPIRIN 81 MG CHEW TAB PO SCH (08:09)
[2017-05-18] MEDS: buPROPion HCL 100 MG TAB PO SCH (08:09)
[2017-05-18] MEDS ORDERED: FUROSEMIDE 20 MG/2 ML VIAL IV PUSH ONE (08:45)
[2017-05-18] MEDS ORDERED: PANTOPRAZOLE SOD 40 MG DELAYED RELEASE TAB PO SCH (09:00)
[2017-05-18] MEDS ORDERED: CLOPIDOGREL 75 MG TAB PO SCH (09:00)
[2017-05-18] MEDS ORDERED: VENLAFAXINE HCL XR 75 MG CAP PO SCH (09:00)
[2017-05-18] MEDS ORDERED: FOLIC ACID 1 MG TAB PO SCH (09:00)
--- NOTE | 2017-05-18 14:03 | ECHRPT ---
Indication: EF assessment of CHF CONCLUSIONS Normal left ventricular size. Mild concentric left ventricular hypertrophy. The left ventricular systolic function is hyperdynamic with an estimated ejection fraction in the ra nge of 65- 70%. Trace mitral valve regurgitation. Normal apearing bioprotsthesis 26mm Evolut Valve No AI or PVL Aortic valve mean gradient is 11 mmHg. There is trace tricuspid valve regurgitation. The estimated pulmonary arterial pressure is 35 mmHg. No pericardial effusion BP: 99 / 50 HR: 77 Rhythm: Sinus MEASUREMENTS (Male / Female) Normal Values Technical Quality:Fair 2D ECHO LV Diastolic Diameter PLAX 3.6 cm 4.2 - 5.9 / 3.9 - 5.3 cm LV Systolic Diameter PLAX 2.5 cm IVS Diastolic Thickness 1.1 cm 0.6 - 1.0 / 0.6 - 0.9 cm LVPW Diastolic Thickness 1.1 cm 0.6 - 1.0 / 0.6 - 0.9 cm LV Relative Wall Thickness 0.6 LVOT Diameter 1.6 cm Aortic Root Diameter 1.8 cm LA Systolic Diameter LX 4.0 cm 3.0 - 4.0 / 2.7 - 3.8 cm DOPPLER AV Peak Velocity 217.0 cm/s AV Peak Gradient 18.8 mmHg AV Mean Gradient 11.0 mmHg AV Velocity Time Integral 41.6 cm LVOT Peak Velocity 110.0 cm/s LVOT Peak Gradient 4.8 mmHg LVOT Velocity Time Integral 22.8 cm AV Area Cont Eq vti 1.1 cm AV Area Cont Eq pk 1.0 cm Mitral E Point Velocity 111.0 cm/s Mitral A Point Velocity 107.0 cm/s Mitral E to A Ratio 1.0 LV E' Lateral Velocity 5.7 cm/s Mitral E to LV E' Lateral Ratio 19.6 LV E' Septal Velocity 5.6 cm/s Mitral E to LV E' Septal Ratio 20.0 TR Peak Velocity 293.0 cm/s TR Peak Gradient 34.3 mmHg Right Atrial Pressure 10.0 mmHg Pulmonary Artery Systolic Pressu 44.3 mmHg Right Ventricular Systolic Press 44.3 mmHg PV Peak Velocity 102.0 cm/s PV Peak Gradient 4.2 mmHg FINDINGS LEFT VENTRICLE Normal left ventricular size. Mild concentric left ventricular hypertrophy. The left ventricular systolic function is hyperdynamic with an estimated ejection fraction in the ra nge of 65- 70%. RIGHT VENTRICLE Normal right ventricular size and systolic function. LEFT ATRIUM The left atrial size is normal. RIGHT ATRIUM The right atrial size is normal. ATRIAL SEPTUM Normal atrial septal thickness without atrial level shunting by limited color doppler interrogation. AORTA The aortic root and proximal ascending aorta are normal in size on limited imaging. MITRAL VALVE Trace mitral valve regurgitation. AORTIC VALVE Aortic valve area is 1.1 cm. Aortic valve mean gradient is 11 mmHg. TRICUSPID VALVE There is trace tricuspid valve regurgitation. The estimated pulmonary arterial pressure is 35 mmHg. PULMONARY VALVE The pulmonary valve is not well visualized. VESSELS The inferior vena cava is normal in size. PERICARDIUM No pericardial effusion. Delio Vidales MD (Electronically Signed) Final Date:18 May 2017 14:01
--- NOTE | 2017-05-18 15:24 | PD.CAR.PN ---
CVT Progress Note Subjective/Hospital Course: 67-year-old female with past medical history significant for atrial fibrillation on chronic oral anticoagulation,DM , HTN, COPD, rheumatoid arthritis on methotrexate and severe aortic stenosis. The patient for the last couple of months has been having progressing complaints of shortness of breath on minimal exertion. She has a known history of a cardiac murmur and has been evaluated by Dr. Salinas. She underwent an echocardiogram which revealed severe aortic stenosis and cardiac catheterization demonstrated normal coronary arteries. She was referred to CT surgery for conventional AVR and after thorough evaluation by Dr. Iyer she was deemed to be a poor AVR candidate given STS score, co-morbidities and methotrexate dependent RA. Thus she is here today for a TAVR. surgery : Transcatheter aortic valve replacement with a 26 Evolut R Corevalve Left subclavian artery approach and cutdown Right femoral arterial and venous percutaneous access Aortography + cyrstalloid 3500cc 05/18 no overnight events, NSR occasional PVC's, did not sleep well last pm HGB 9.4/ 2/2 being dilutional temp pacer dc and IJ cvc dc doing well this afternoon stable for dc post echo : The left ventricular systolic function is hyperdynamic with an estimated ejection fraction in the range of 65- 70%. , Trace mitral valve regurgitation. , Normal apearing bioprotsthesis 26mm Evolut Valve, No AI or PVL, Aortic valve mean gradient is 11 mmHg. There is trace tricuspid valve regurgitation. , The estimated pulmonary arterial pressure is 35 mmHg. , No pericardial effusion Objective: GENERAL: SKIN: Warm and dry. dressing to right IJ site, and both groins HEAD: Normocephalic. EYES: No scleral icterus. No injection or drainage. NECK: Supple, trachea midline. No JVD or lymphadenopathy. CARDIOVASCULAR: Regular rate and rhythm without murmurs, gallops, or rubs. RESPIRATORY: Breath sounds equal bilaterally. No accessory muscle use. GASTROINTESTINAL: Abdomen soft, non-tender, nondistended. MUSCULOSKELETAL: No cyanosis, or edema. BACK: Nontender without obvious deformity. No CVA tenderness. Vital Signs Date Time Temp Pulse Resp B/P (MAP) Pulse Ox O2 Delivery O2 Flow Rate FiO2 05/18/17 15:11 98.2 79 18 117/55 (75) 96 05/18/17 12:34 79 05/18/17 12:33 95 Room Air 05/18/17 11:00 98.5 77 16 122/69 (86) 95 05/18/17 11:00 95 Room Air 05/18/17 08:00 78 05/18/17 07:30 98.6 78 16 101/63 (76) 95 05/18/17 06:00 96 Room Air 05/18/17 04:00 92 05/18/17 04:00 94 Nasal Cannula 1.00 05/18/17 04:00 98.1 77 20 99/50 (66) 98 05/18/17 00:00 92 05/18/17 00:00 99 Nasal Cannula 2.00 05/18/17 00:00 92 18 99/56 (70) 99 05/17/17 22:42 18 05/17/17 22:03 97 Nasal Cannula 2.00 05/17/17 20:00 98.2 94 20 113/64 (80) 98 05/17/17 20:00 98 Nasal Cannula 2.00 05/17/17 20:00 94 05/17/17 16:00 94 05/17/17 16:00 94 05/17/17 16:00 99 Nasal Cannula 2.00 05/17/17 16:00 97.7 93 12 112/67 (82) 99 05/17/17 15:30 97.8 94 12 83/52 (62) 99 Labs: Laboratory Tests Test 05/18/17 04:10 White Blood Count 6.7 TH/MM3 (4.0-11.0) Red Blood Count 2.84 MIL/MM3 (4.00-5.30) Hemoglobin 9.4 GM/DL (11.6-15.3) Hematocrit 27.8 % (35.0-46.0) Mean Corpuscular Volume 97.9 FL (80.0-100.0) Mean Corpuscular Hemoglobin 33.2 PG (27.0-34.0) Mean Corpuscular Hemoglobin Concent 33.9 % (32.0-36.0) Red Cell Distribution Width 15.1 % (11.6-17.2) Platelet Count 76 TH/MM3 (150-450) Mean Platelet Volume 10.1 FL (7.0-11.0) Blood Urea Nitrogen 7 MG/DL (7-18) Creatinine 0.76 MG/DL (0.50-1.00) Random Glucose 173 MG/DL (74-106) Total Protein 5.0 GM/DL (6.4-8.2) Albumin 2.6 GM/DL (3.4-5.0) Calcium Level 7.9 MG/DL (8.5-10.1) Alkaline Phosphatase 52 U/L (45-117) Aspartate Amino Transf (AST/SGOT) 67 U/L (15-37) Alanine Aminotransferase (ALT/SGPT) 76 U/L (10-53) Total Bilirubin 0.4 MG/DL (0.2-1.0) Sodium Level 136 MEQ/L (136-145) Potassium Level 4.3 MEQ/L (3.5-5.1) Chloride Level 101 MEQ/L (98-107) Carbon Dioxide Level 25.1 MEQ/L (21.0-32.0) Anion Gap 10 MEQ/L (5-15) Estimat Glomerular Filtration Rate 76 ML/MIN (>89) Result Diagram: 05/18/17 0410 05/18/17 0410 (1) Aortic stenosis Plan: 67 y/o F s/p Left Subclavian TAVR with a 26mm Evolut R. Afebrile and hemodynamically stable. Acute on chronic diastolic heart failure on exam. Drop in H/H dilutional. Will give IV Lasix this AM. Appreciate EP f/u and recs no tachy or fredy arrhythmias. Plan: 1. IV Lasix 20mg IV 2. PT/OT 3. Cont ASA and Plavix 4. D/C TPM 5. D/C Art Line 6. D/C IJ 7. Encourage ambulation and incentive spirometry 8. ok to dc home (2) Diastolic CHF due to valvular disease (3) Anxiety associated with depression Problem Qualifiers (1) Aortic stenosis: Qualified Codes: I06.0 - Rheumatic aortic stenosis Marina Ghotra May 18, 2017 15:24
[2017-05-18] MEDS ORDERED: PLAV75TA29 PO (15:29)
--- NOTE | 2017-05-18 15:29 | PD.CARD ---
Cardiology Procedure Note Procedure Name: Left Subclavian TAVR Procedure Date: May 17, 2017 Procedure Note: DATE OF : 1950 OPERATIVE DIAGNOSIS: 1. Severe symptomatic aortic stenosis with preserved LV systolic function. 2. Shortness of breath, Chronic combined heart failure, [place] [employer] of III. 3. Hypertension. 4. Atrial fibrillation s/p ablation 5. Rheumatoid Arthritis 6. Diabetes Mellitus 7. Chronic Diastolic Heart Failure 8. Severe PAD POSTOPERATIVE DIAGNOSIS 1. Severe symptomatic aortic stenosis with preserved LV systolic function. 2. Shortness of breath, Chronic combined heart failure, [place] [employer] of III. 3. Hypertension. 4. Atrial fibrillation s/p ablation 5. Rheumatoid Arthritis 6. Diabetes Mellitus 7. Chronic Diastolic Heart Failure 8. Severe PAD OPERATIVE PROCEDURE -Left subclavian transaortic valve replacement with a 26 mm Evolut R Medtronic valve -Aortic root angiogram. -Placement of a pigtail -Temporary pacemaker insertion. -Mynx right common femoral artery and vein ANESTHESIA Dr. Perez SURGEON: Dr. Mary Goodwin OCEAN LIFEGUARD: reaming machine operator: Dr. Jael Calderon. Supply Chain Intern: Dr. Robbi Paz. ECHO-SUPPORT: Dr. Juan Rubin INDICATIONS 67 year-old F with severe symptomatic aortic stenosis with progressive symptoms of heart failure NYHA III. The patient has been evaluated for aortic valve replacement. It was felt that he will be an intermediate risk for conventional aortic valve replacement on the basis of frailty, STS score and comorbidities. She has been evaluated and accepted for transcatheter aortic valve replacement after extensive review of patient's chart. The risks of the procedure have been discussed with the patient at length and consents have been signed and to proceed as planned. DESCRIPTION OF PROCEDURE Under general anesthesia a transesophageal echocardiogram was placed in the esophagus which was used throughout the procedure to evaluate aortic valve as well as the other valve structures. Intraoperative transesophageal echo demonstrated severe aortic stenosis. Then using 1% lidocaine for local anesthesia and a micropuncture kit, the right femoral artery and vein were enter percutaneously and a two 5-Danish sheath was inserted. Then pigtail catheter was advanced over 0.035 wire around the arch of the aorta and placed in the noncoronary cuff for aortic. Then the left subclavian artery was exposed thru a cutdown. Then a long 25cm 6Fr sheath was introduced in the the left subclavian and position distally. The patient was then fully heparinized with an ACT checked. This was followed by insertion of a JR4 diagnostic catheter over a wire and position in the ascending aorta. Catheter was then exchanged for an AL1 6Fr catheter which was used to cross the aortic valve over a straight 300 cm stiff, Amplatz wire. The tip of the wire was left in the mid left ventricular cavity. Then a 6-Danish pigtail was inserted over the wire. This was followed by exchanging the wire with a Confida wire. Then we removed the 6-Danish sheath to insert the Valve sheath thru the left subclavian artery. After confirmation of position thru fluoroscopy/angiography/VARUN the valve was self expanded while pacing at 120bpm. Post deployment there was a no sign PVL on transesophageal echocardiogram. The patient tolerated the procedure well without complications. The catheter was removed with pullback the system to the aortic aorta and then it was removed from the left femoral artery and Perclose. Finally the pigtail was removed. The the sheath on the right side were removed and pressure and Mynx. This concluded the operation. A postoperative transesophageal echocardiogram demonstrated adequate function of the aortic bioprosthesis. The aortic valve area postprocedure was 2.3. The post implant mean gradient 5mmHg. The post aortic velocity 1.8. There was no AI. COMPLICATIONS: None. DISPOSITION Admit to CICU a stable condition for post cath care. Dual antiplatelet agent with aspirin and Plavix. Early extubation, out of bed after bedrest. The temporary pacemaker to remain in place for the next 24 hours. Telemetry monitoring, EP consult per protocol, resume home medications. Delio Vidales MD, MPH, [facility] Delio Vidales MD May 18, 2017 15:29
--- NOTE | 2017-05-18 15:34 | HHI.DS ---
Discharge Summary Admission Date May 17, 2017 at 09:53 Discharge Date: May 18, 2017 Admitting Diagnosis aortic stenosis (1) Aortic stenosis Diagnosis: Principal ICD Codes: I35.0 - Nonrheumatic aortic (valve) stenosis (2) Anxiety associated with depression Diagnosis: Principal ICD Codes: F41.8 - Other specified anxiety disorders Status: Chronic (3) Diastolic CHF due to valvular disease Diagnosis: Principal ICD Codes: I38 - Endocarditis, valve unspecified; I50.30 - Unspecified diastolic (congestive) heart failure (4) S/P TAVR (transcatheter aortic valve replacement) Diagnosis: Secondary ICD Codes: Z95.2 - Presence of prosthetic heart valve Procedures Transcatheter aortic valve replacement with a 26 Evolut R Corevalve Left subclavian artery approach and cutdown Right femoral arterial and venous percutaneous access Aortography Fluoroscopy CBC/BMP: 05/18/17 0410 05/18/17 0410 Significant Findings Laboratory Tests Test 05/17/17 10:30 05/17/17 18:30 05/18/17 04:10 Red Blood Count 3.96 MIL/MM3 (4.00-5.30) 2.84 MIL/MM3 (4.00-5.30) Platelet Count 133 TH/MM3 (150-450) 76 TH/MM3 (150-450) Monocytes (%) (Auto) 10.1 % (0.0-8.0) Sodium Level 135 MEQ/L (136-145) Estimat Glomerular Filtration Rate 76 ML/MIN (>89) 76 ML/MIN (>89) Random Glucose 124 MG/DL (74-106) 173 MG/DL (74-106) Calcium Level 7.5 MG/DL (8.5-10.1) 7.9 MG/DL (8.5-10.1) Hemoglobin 9.4 GM/DL (11.6-15.3) Hematocrit 27.8 % (35.0-46.0) Total Protein 5.0 GM/DL (6.4-8.2) Albumin 2.6 GM/DL (3.4-5.0) Aspartate Amino Transf (AST/SGOT) 67 U/L (15-37) Alanine Aminotransferase (ALT/SGPT) 76 U/L (10-53) Pt Condition on Discharge: Good Discharge Disposition: Discharge Home Discharge Instructions DIET: Follow Instructions for: Diabetic Diet Activities you can perform: Full Weight Bearing, Shower Only-No Bath Activities to avoid: Strenuous Activity, Driving Additional Activity Instructio: no lifting > 10 lbs or gallon of milk Marina Ghotra May 18, 2017 15:34
--- NOTE | 2017-05-18 15:36 | HHI.DS ---
Discharge Summary Admission Date May 17, 2017 at 09:53 Admitting Diagnosis (1) Aortic stenosis Diagnosis: Principal ICD Codes: I35.0 - Nonrheumatic aortic (valve) stenosis (2) Anxiety associated with depression Diagnosis: Principal ICD Codes: F41.8 - Other specified anxiety disorders Status: Chronic (3) Diastolic CHF due to valvular disease Diagnosis: Principal ICD Codes: I38 - Endocarditis, valve unspecified; I50.30 - Unspecified diastolic (congestive) heart failure (4) S/P TAVR (transcatheter aortic valve replacement) Diagnosis: Secondary ICD Codes: Z95.2 - Presence of prosthetic heart valve Procedures Transcatheter aortic valve replacement with a 26 Evolut R Corevalve Left subclavian artery approach and cutdown Right femoral arterial and venous percutaneous access Aortography Fluoroscopy Brief History 67-year-old female with past medical history significant for atrial fibrillation on chronic oral anticoagulation,DM , HTN, COPD, rheumatoid arthritis on methotrexate and severe aortic stenosis. The patient for the last couple of months has been having progressing complaints of shortness of breath on minimal exertion. She has a known history of a cardiac murmur and has been evaluated by Dr. Salinas. She underwent an echocardiogram which revealed severe aortic stenosis and cardiac catheterization demonstrated normal coronary arteries. She was referred to CT surgery for conventional AVR and after thorough evaluation by Dr. Iyer she was deemed to be a poor AVR candidate given STS score, co-morbidities and methotrexate dependent RA. Thus she is here today for a TAVR. surgery : Transcatheter aortic valve replacement with a 26 Evolut R Corevalve Left subclavian artery approach and cutdown Right femoral arterial and venous percutaneous access Aortography + cyrstalloid 3500cc CBC/BMP: 05/18/17 0410 05/18/17 0410 Significant Findings Laboratory Tests Test 05/17/17 10:30 05/17/17 18:30 05/18/17 04:10 Red Blood Count 3.96 MIL/MM3 (4.00-5.30) 2.84 MIL/MM3 (4.00-5.30) Platelet Count 133 TH/MM3 (150-450) 76 TH/MM3 (150-450) Monocytes (%) (Auto) 10.1 % (0.0-8.0) Sodium Level 135 MEQ/L (136-145) Estimat Glomerular Filtration Rate 76 ML/MIN (>89) 76 ML/MIN (>89) Random Glucose 124 MG/DL (74-106) 173 MG/DL (74-106) Calcium Level 7.5 MG/DL (8.5-10.1) 7.9 MG/DL (8.5-10.1) Hemoglobin 9.4 GM/DL (11.6-15.3) Hematocrit 27.8 % (35.0-46.0) Total Protein 5.0 GM/DL (6.4-8.2) Albumin 2.6 GM/DL (3.4-5.0) Aspartate Amino Transf (AST/SGOT) 67 U/L (15-37) Alanine Aminotransferase (ALT/SGPT) 76 U/L (10-53) PE at Discharge GENERAL: SKIN: Warm and dry. dressing D&I right neck and both groins HEAD: Normocephalic. EYES: No scleral icterus. No injection or drainage. NECK: Supple, trachea midline. No JVD or lymphadenopathy. CARDIOVASCULAR: Regular rate and rhythm without murmurs, gallops, or rubs. RESPIRATORY: Breath sounds equal bilaterally. No accessory muscle use. GASTROINTESTINAL: Abdomen soft, non-tender, nondistended. MUSCULOSKELETAL: No cyanosis, or edema. BACK: Nontender without obvious deformity. No CVA tenderness. Hospital Course 05/18 no overnight events, NSR occasional PVC's, did not sleep well last pm HGB 9.4/ 2/2 being dilutional temp pacer dc and IJ cvc dc doing well this afternoon stable for dc post echo : The left ventricular systolic function is hyperdynamic with an estimated ejection fraction in the range of 65- 70%. , Trace mitral valve regurgitation. , Normal apearing bioprotsthesis 26mm Evolut Valve, No AI or PVL, Aortic valve mean gradient is 11 mmHg. There is trace tricuspid valve regurgitation. , The estimated pulmonary arterial pressure is 35 mmHg. , No pericardial effusion Pt Condition on Discharge: Good Discharge Disposition: Discharge Home Discharge Instructions DIET: Follow Instructions for: Diabetic Diet Activities you can perform: Full Weight Bearing, Shower Only-No Bath Activities to avoid: Strenuous Activity, Driving Additional Activity Instructio: no lifting > 10 lbs or gallon of milk Follow up Referrals: Appointment for Follow Up Cardiology New Medications: Clopidogrel (Plavix) 75 Mg Tab 75 MG PO DAILY for Blood Clot Prevention, #30 TAB 2 Refills Continued Medications: Albuterol 18 GM Inh (Ventolin Hfa 18 GM Inh) 90 Mcg/Act Aer 2-3 PUFF INH Q6H PRN for SHORTNESS OF BREATH, #1 INHALER [address] (Aspirin Adult Low Strength) 81 Mg Tabdr 81 MG PO DAILY, TAB Atorvastatin (Atorvastatin) 40 Mg Tab 40 MG PO HS for Cholesterol Management, #30 TAB 0 Refills Bupropion HCl (Bupropion HCl) 100 Mg Tab 100 MG PO BID for Control Depression, TAB 0 Refills Folic Acid (Folic Acid) 1 Mg Tablet 1 MG PO DAILY Hydrocodone-Acetaminophen ([place]) 10-325 Mg Tab 1 TAB PO QID for PAIN, TAB 0 Refills Levothyroxine (Levothyroxine) 50 Mcg Tab 50 MCG PO DAILY for Thyroid, #30 TAB 0 Refills Lisinopril (Lisinopril) 5 Mg Tab 5 MG PO DAILY for Blood Pressure Management, #30 TAB 0 Refills Meclizine (Meclizine) 25 Mg Tab 25 MG PO TID PRN for VERTIGO, TAB 0 Refills Metformin (Metformin) 500 Mg Tab 500 MG PO BIDPC for Blood Sugar Management, #60 TAB 0 Refills Methotrexate (Methotrexate) 2.5 Mg Tab 20 MG PO WEEKLY, TAB 0 Refills Omeprazole (Omeprazole) 40 Mg Cap 40 MG PO DAILY, #30 CAP 0 Refills Spironolactone (Spironolactone) 25 Mg Tab 25 MG PO DAILY, #30 TAB 0 Refills Temazepam (Temazepam) 30 Mg Cap 30 MG PO HS for INSOMNIA, #30 CAP 0 Refills Venlafaxine ER 24 HR (Venlafaxine ER 24 HR) 75 Mg Cap 75 MG PO DAILY, #30 CAP 0 Refills Marina Ghotra May 18, 2017 15:36
--- NOTE | 2017-05-18 18:23 | EKG ---
Date Performed: 05/17/2017 Time Performed: 10:39:22 PTAGE: 67 years EKG: Possible ectopic atrial rhythm. Borderline ECG PREVIOUS TRACING : 04/04/2017 11.25 Since the prior tracing, there has been no significant seri al change, and the previous rhythm was also a possible ectopic atrial rhythm. DOCTOR: Zulema Gonzalez Interpretating Date/Time 05/18/2017 18:22:13
--- NOTE | 2017-05-18 18:28 | EKG ---
Date Performed: 05/18/2017 Time Performed: 04:42:22 PTAGE: 67 years EKG: Sinus rhythm Possible septal infarct - age undetermined Inferior/lateral ST-T changes are nonspecific Abnormal EC G PREVIOUS TRACING : 05/17/2017 10.39 Since the prior tracing, the atrial rhythm is more convinci blely sinus rhythm. The inferolateral ST segment changes are, however, new. Myocardial ischemia shoul d be excluded clinically. DOCTOR: Zulema Gonzalez Interpretating Date/Time 05/18/2017 18:27:15
== END 2017-05-18 16:30 | disposition home or self-care (01) | DRG 266 ==
LOC: HDIC 09:53 → HCVI 15:30 → HCPC 05-18 11:30
PROVIDERS: ADMIT Radiology Vascular & Interventional Radiology; ATTEND Radiology Vascular & Interventional Radiology
PROC: 02RF38Z Replacement of Aortic Valve with Zooplastic Tissue, Percutaneous Approach (ICD-10-PCS; principal; 2017-05-17 13:00)
PROC: B24BZZ4 Ultrasonography of Heart with Aorta, Transesophageal (ICD-10-PCS; 2017-05-17 13:00)
DX: I35.0 Nonrheumatic aortic (valve) stenosis (principal); I50.33 Acute on chronic diastolic (congestive) heart failure; I48.91 Unspecified atrial fibrillation; E11.51 Type 2 diabetes mellitus with diabetic peripheral angiopathy without gangrene; J44.9 Chronic obstructive pulmonary disease, unspecified; M06.9 Rheumatoid arthritis, unspecified; I11.0 Hypertensive heart disease with heart failure; G89.4 Chronic pain syndrome; K21.9 Gastro-esophageal reflux disease without esophagitis; E78.5 Hyperlipidemia, unspecified; I34.0 Nonrheumatic mitral (valve) insufficiency; I67.9 Cerebrovascular disease, unspecified; E03.9 Hypothyroidism, unspecified; F41.8 Other specified anxiety disorders; R01.1 Cardiac murmur, unspecified; M19.90 Unspecified osteoarthritis, unspecified site; G47.30 Sleep apnea, unspecified; Z87.891 Personal history of nicotine dependence; Z79.01 Long term (current) use of anticoagulants; Z79.84 Long term (current) use of oral hypoglycemic drugs; Z86.73 Personal history of transient ischemic attack (TIA), and cerebral infarction without residual deficits
CPT/HCPCS: 33210; 33363; 36430; 80048; 80053; 85002; 85025; 85027; 85610; 85730; 86850; 86900; 86901; 86920; 93005; 93308; 94150; C1760; C1769; C1893; G0269; J0690; J1644; J1940; J7030; P9016; Q9967

== ENCOUNTER 2017-06-21 11:15 | Inpatient (IN) | payer OTHER, MEDICARE ==
[~2017-06-21] VITALS: Ht 152.4 cm; Wt 63.0 kg
[~2017-06-21 11:15] MED LIST changes: +ASPI1TAB57 PO; +ATOR40TA16 PO; -BIOT1CHW PO; +BUSP5TAB PO; +CLOP75TA PO; +FOLI400T PO; +IMIT25TA PO; -LIOT5TAB3 PO; +LISI40TA PO; +MECL-62 PO; +MONT10TA4 PO; +MORP-44 PO; +ONDA8TAB7 PO; +OXYC1TAB63 PO; +PLAV75TA29 PO; +SPIR25TA PO; +TRAZ50TA12 PO; +VENL150C39 PO; +VENL75CA44 PO; -VIST25CA PO; -ZOCO20TA PO; +[UNRECOGNIZED DRUG - OTHER]; +methotrexate; +trazodone
[2017-06-21 11:19] VITALS: BP 219/97; PULSE 62; RESP 16; O2SAT 96
[2017-06-21] MEDS ORDERED: SODIUM CHLORIDE 0.9% FLUSH 10 ML FLUSH IVF PRN (11:30)
[2017-06-21] MEDS ORDERED: cloNIDine HCL 0.1 MG TAB PO ONE (11:30)
[2017-06-21] MEDS ORDERED: ONDANSETRON HCL 4 MG/2 ML VIAL IVP ONE (11:30)
--- NOTE | 2017-06-21 11:34 | PD ---
HPI Chief Complaint: Neuro Symptoms/ Deficits Time Seen by Provider: 11:25 Travel History International Travel<30 days: No Contact w/Intl Traveler<30days: No Traveled to known affect area: No History of Present Illness HPI 67-year-old female presents to the emergency room for evaluation of severe headache, nausea, hypertension, and dizziness since 5:00 this morning. Patient has history of intracranial hemorrhage on 06/13/2017. She was discharged 2016 to a rehabilitation facility. States she has not felt well since discharge but this morning upon waking she felt the worst that she has thus far. She was given Percocet, morphine, Zofran, and clonidine at the rehabilitation center without any relief in symptoms. She denies any new trauma or injury. Denies any other symptoms. Headache is 10/10 and located in the back of her head. No photophobia or paresthesias. She is on aspirin and Plavix. PFSH Past Medical History Arthritis: Yes (RA) Cancer: Yes (right breast) Cardiovascular Problems: Yes Chemotherapy: Yes ( 2009) Diabetes: Yes Endocrine: No GERD: Yes Genitourinary: No Immune Disorder: No Musculoskeletal: Yes Neurologic: Yes Psychiatric: No Reproductive: No Respiratory: Yes Migraines: No Radiation Therapy: Yes (2009) Seizures: No Sleep Apnea: Yes (lasted approximately 3 years; ended in 2014) ?: Not Past Surgical History Abdominal Surgery: Yes (gallbladder beginning of 05/2017) Cardiac Surgery: Yes (heart valve replacement 05/17/2017) Ear Surgery: No Endocrine Surgery: No Eye Surgery: Yes (lasix 2010) Genitourinary Surgery: No Gynecologic Surgery: Yes (complete hysterectomy 1974) Oral Surgery: Yes (patient with full upper and lower dentures) Thoracic Surgery: No Social History Alcohol Use: No Tobacco Use: No Substance Use: No Allergies-Medications (Allergen,Severity, Reaction): Coded Allergies: codeine (Verified Allergy, Unknown, 06/21/17) Reported Meds & Prescriptions Reported Meds & Active Scripts Active Imitrex (Sumatriptan Succinate) 25 Mg Tab 25 Mg PO BID PRN If a satisfactory response has not been obtained at 2 hours, a second dose may be administered Trazodone (Trazodone HCl) 50 Mg Tab 50 Mg PO HS Lisinopril 40 Mg Tab 40 Mg PO DAILY Oxycodone-Acetaminophen 5-325 (Oxycodone HCl/Acetaminophen) 5 Mg-325 Mg Tablet 1 -2 Tab PO Q4H PRN Reported [trazodone] Montelukast (Montelukast Sodium) 10 Mg Tab 10 Mg PO DAILY Ondansetron (Ondansetron HCl) 8 Mg Tab 4 Mg PO TID [ayr nasal mist] Aspirin 81 (Aspirin) 81 Mg Tabdr 81 Mg PO DAILY Metformin (Metformin HCl) 500 Mg Tab 500 Mg PO BID Morphabond ER 12 HR (Morphine Sulfate) 30 Mg Tab 30 Mg PO DAILY Spironolactone 25 Mg Tab 25 Mg PO DAILY Metoprolol Tartrate 50 Mg Tab 50 Mg PO DAILY Venlafaxine ER 24 HR (Venlafaxine HCl) 150 Mg Cap 150 Mg PO DAILY Buspirone (Buspirone HCl) 5 Mg Tab 5 Mg PO TID Clopidogrel (Clopidogrel Bisulfate) 75 Mg Tab 75 Mg PO DAILY [methotrexate] Folic Acid 0.4 Mg Tab 1 Mg PO DAILY except on day of methotrexate Review of Systems Except as stated in HPI: all other systems reviewed are Neg Physical Exam Narrative GENERAL: Well-developed, well-nourished female in no acute distress. Afebrile. SKIN: Focused skin assessment warm/dry. Old and severe bruising around the right neck, upper shoulder, and head. HEAD: Atraumatic. Normocephalic. EYES: Pupils equal and round. No scleral icterus. No injection or drainage. ENT: No nasal bleeding or discharge. Mucous membranes pink and moist. NECK: Trachea midline. No JVD. CARDIOVASCULAR: Regular rate and rhythm. No murmur appreciated. RESPIRATORY: No accessory muscle use. Clear to auscultation. Breath sounds equal bilaterally. GASTROINTESTINAL: Abdomen soft, non-tender, nondistended. Hepatic and splenic margins not palpable. NEUROLOGICAL: Awake and alert. Cranial nerves II through XII intact. Motor and sensory grossly within normal limits. Normal speech. Strength 5/5 in bilateral lower extremities and left upper extremity. Decreased strength in right upper extremity that has been ongoing for 3 weeks. No pronator drift in lower extremities. Data Data Last Documented VS Vital Signs Date Time Temp Pulse Resp B/P (MAP) Pulse Ox O2 Delivery O2 Flow Rate FiO2 06/21/17 16:05 63 24 176/82 (113) 98 06/21/17 14:26 Room Air Orders Orders Electrocardiogram (06/21/17 11:25) Prothrombin Time / Inr (Pt) (06/21/17 11:25) Act Partial Throm Time (Ptt) (06/21/17 11:25) Complete Blood Count With Diff (06/21/17 11:25) Comprehensive Metabolic Panel (06/21/17 11:25) Ct Brain W/O Iv Contrast(Rout) (06/21/17 11:25) Ecg Monitoring (06/21/17 11:25) Iv Access Insert/Monitor (06/21/17 11:25) Oximetry (06/21/17 11:25) Ondansetron Inj (Zofran Inj) (06/21/17 11:30) Sodium Chloride 0.9% Flush (Ns Flush) (06/21/17 11:30) Clonidine (Catapres) (06/21/17 11:30) Morphine Inj (Morphine Inj) (06/21/17 13:45) Morphine Inj (Morphine Inj) (06/21/17 16:00) Enalaprilat Inj (Vasotec Inj) (06/21/17 16:00) Admit Order (Ed Use Only) (06/21/17 16:53) Labs Laboratory Tests Test 06/21/17 11:50 White Blood Count 10.9 TH/MM3 Red Blood Count 3.79 MIL/MM3 Hemoglobin 12.1 GM/DL Hematocrit 35.5 % Mean Corpuscular Volume 93.6 FL Mean Corpuscular Hemoglobin 31.9 PG Mean Corpuscular Hemoglobin Concent 34.0 % Red Cell Distribution Width 15.2 % Platelet Count 96 TH/MM3 Mean Platelet Volume 12.5 FL Neutrophils (%) (Auto) 78.3 % Lymphocytes (%) (Auto) 9.5 % Monocytes (%) (Auto) 10.5 % Eosinophils (%) (Auto) 1.3 % Basophils (%) (Auto) 0.4 % Neutrophils # (Auto) 8.5 TH/MM3 Lymphocytes # (Auto) 1.0 TH/MM3 Monocytes # (Auto) 1.1 TH/MM3 Eosinophils # (Auto) 0.1 TH/MM3 Basophils # (Auto) 0.0 TH/MM3 CBC Comment AUTO DIFF Differential Comment AUTO DIFF CONFIRMED Platelet Estimate LOW Platelet Morphology Comment ENLARGED [place] Cells 1+ Acanthocytes OCC Prothrombin Time 12.2 SEC Prothromb Time International Ratio 1.2 RATIO Activated Partial Thromboplast Time 27.2 SEC Blood Urea Nitrogen 10 MG/DL Creatinine 0.51 MG/DL Random Glucose 84 MG/DL Total Protein 6.7 GM/DL Albumin 3.2 GM/DL Calcium Level 8.6 MG/DL Alkaline Phosphatase 112 U/L Aspartate Amino Transf (AST/SGOT) 69 U/L Alanine Aminotransferase (ALT/SGPT) 56 U/L Total Bilirubin 1.3 MG/DL Sodium Level 127 MEQ/L Potassium Level 4.0 MEQ/L Chloride Level 95 MEQ/L Carbon Dioxide Level 24.2 MEQ/L Anion Gap 8 MEQ/L Estimat Glomerular Filtration Rate 121 ML/MIN MDM Medical Decision Making Medical Screen Exam Complete: Yes Emergency Medical Condition: Yes Medical Record Reviewed: Yes Differential Diagnosis Fall, TBI, subdural hemorrhage, traumatic brain injury, migraine Narrative Course 67-year-old female with history of subdural hemorrhage one week ago presents to the emergency room for evaluation of worsening headache, nausea, and dizziness since 5:00 this morning. Denies any new trauma or injury to the head. Patient was noted to be hypertensive even more so than normal. She was given her doses of antihypertensive medications at the rehabilitation center as well as morphine and Percocet prior to arrival. She was given additional dose of clonidine and morphine on arrival without any relief in symptoms. She was then given a second dose of morphine and IV enalapril. CBC is essentially unremarkable except for thrombocytopenia. CMP is remarkable for sodium of 127. CT shows evolving right-sided subdural hematoma and slight decrease in the size of the intraventricular hemorrhage. Patient has not had any relief from pain medications and remains hypertensive. Patient will be admitted for intractable headache. I spoke to Dr. Rankin who agrees to admit this patient to her service. Diagnosis Primary Impression: Acute headache secondary to trauma Qualified Codes: G44.311 - Acute post-traumatic headache, intractable Admitting Information Admitting Physician Requests: Observation Condition: Stable Madisyn Santizo Jun 21, 2017 11:34
[2017-06-21 12:13] LABS: AUTOMATED NEUTROPHIL # 8.5 TH/MM3 (1.8-7.7); BASOPHIL % 0.4 % (0.0-2.0); EOSINOPHIL # 0.1 TH/MM3 (0-0.4); EOSINOPHIL % 1.3 % (0.0-4.0); HEMATOCRIT 35.5 % (35.0-46.0); HEMOGLOBIN 12.1 GM/DL (11.6-15.3); LYMPH % 9.5 % (9.0-44.0); MEAN CELL VOLUME 93.6 FL (80.0-100.0); MEAN CORPUSCULAR HEMOGLOBIN 31.9 PG (27.0-34.0); MEAN PLATELET VOLUME 12.5 FL (7.0-11.0); MONO % 10.5 % (0.0-8.0); MONOCYTE # 1.1 TH/MM3 (0-0.9); NEUT % 78.3 % (16.0-70.0); PLATELET COUNT 96 TH/MM3 (150-450); RED BLOOD COUNT 3.79 MIL/MM3 (4.00-5.30); RED CELL DISTRIBUTION WIDTH 15.2 % (11.6-17.2); WHITE BLOOD COUNT 10.9 TH/MM3 (4.0-11.0)
[2017-06-21 12:22] LABS: INTERNATIONAL NORMALIZED RATIO 1.2 RATIO; PROTHROMBIN TIME - PATIENT 12.2 SEC (9.8-11.6)
--- NOTE | 2017-06-21 12:36 | RADRPT ---
EXAM DATE/TIME: 06/21/2017 11:51 [facility] COMPARISON: No previous studies available for comparison. INDICATIONS : Fell nine days ago,resulted in a subdural now having elavated blood pressure on nausea. RADIATION DOSE: 56.35 CTDIvol (mGy) MEDICAL HISTORY : Cardiovascular disease. Hypertension. Carcinoma, breast. SURGICAL HISTORY : Hysterectomy. ENCOUNTER: Initial ACUITY: 1 day PAIN SCALE: 10/10 LOCATION: posterior cranial TECHNIQUE: Multiple contiguous axial images were obtained of the head. Using automated exposure control and adj ustment of the mA and/or kV according to patient size, radiation dose was kept as low as reasonably a chievable to obtain optimal diagnostic quality images. DICOM format image data is available electro nically for review and comparison. FINDINGS: There is an evolving right-sided subdural hematoma which is less apparent in the tentorial region and middle cranial fossa and remains visible in the right parietal convexity and occipital region. No ne w intracranial hemorrhage. No significant mass effect or shift. Intraventricular hemorrhage is resolv ing CONCLUSION: 1. Evolving right-sided subdural hematoma. Slight decrease in size of intraventricular hemorrhage. No new hemorrhage or shift Joby Elder MD on June 21, 2017 at 12:31 Board Certified Radiologist. This report was verified electronically.
[2017-06-21 12:40] LABS: ALKALINE PHOSPHATASE 112 U/L (45-117); TOTAL BILIRUBIN ADULT 1.3 MG/DL (0.2-1.0); TOTAL PROTEIN 6.7 GM/DL (6.4-8.2)
[2017-06-21 12:45] LABS: ALBUMIN 3.2 GM/DL (3.4-5.0); ALT (GPT) 56 U/L (10-53); AST (GOT) 69 U/L (15-37); BICARBONATE 24.2 MEQ/L (21.0-32.0); BLOOD UREA NITROGEN 10 MG/DL (7-18); CALCIUM 8.6 MG/DL (8.5-10.1); CHLORIDE 95 MEQ/L (98-107); CREATININE 0.51 MG/DL (0.50-1.00); GLOMERULAR FILTRATION RATE 121 ML/MIN (>89); GLUCOSE,RANDOM 84 MG/DL (74-106); SODIUM (NA) 127 MEQ/L (136-145)
[2017-06-21 12:50] LABS: ACANTHOCYTES OCC (NORMAL); BURR CELLS 1+ (NORMAL)
--- NOTE | 2017-06-21 13:40 | PD ---
Data Data Last Documented VS Vital Signs Date Time Temp Pulse Resp B/P (MAP) Pulse Ox O2 Delivery O2 Flow Rate FiO2 06/21/17 11:19 62 16 219/97 (137) 96 Orders Orders Electrocardiogram (06/21/17 11:25) Prothrombin Time / Inr (Pt) (06/21/17 11:25) Act Partial Throm Time (Ptt) (06/21/17 11:25) Complete Blood Count With Diff (06/21/17 11:25) Comprehensive Metabolic Panel (06/21/17 11:25) Ct Brain W/O Iv Contrast(Rout) (06/21/17 11:25) Ecg Monitoring (06/21/17 11:25) Iv Access Insert/Monitor (06/21/17 11:25) Oximetry (06/21/17 11:25) Ondansetron Inj (Zofran Inj) (06/21/17 11:30) Sodium Chloride 0.9% Flush (Ns Flush) (06/21/17 11:30) Clonidine (Catapres) (06/21/17 11:30) Morphine Inj (Morphine Inj) (06/21/17 13:45) Labs Laboratory Tests Test 06/21/17 11:50 White Blood Count 10.9 TH/MM3 Red Blood Count 3.79 MIL/MM3 Hemoglobin 12.1 GM/DL Hematocrit 35.5 % Mean Corpuscular Volume 93.6 FL Mean Corpuscular Hemoglobin 31.9 PG Mean Corpuscular Hemoglobin Concent 34.0 % Red Cell Distribution Width 15.2 % Platelet Count 96 TH/MM3 Mean Platelet Volume 12.5 FL Neutrophils (%) (Auto) 78.3 % Lymphocytes (%) (Auto) 9.5 % Monocytes (%) (Auto) 10.5 % Eosinophils (%) (Auto) 1.3 % Basophils (%) (Auto) 0.4 % Neutrophils # (Auto) 8.5 TH/MM3 Lymphocytes # (Auto) 1.0 TH/MM3 Monocytes # (Auto) 1.1 TH/MM3 Eosinophils # (Auto) 0.1 TH/MM3 Basophils # (Auto) 0.0 TH/MM3 CBC Comment AUTO DIFF Differential Comment AUTO DIFF CONFIRMED Platelet Estimate LOW Platelet Morphology Comment ENLARGED [place] Cells 1+ Acanthocytes OCC Prothrombin Time 12.2 SEC Prothromb Time International Ratio 1.2 RATIO Activated Partial Thromboplast Time 27.2 SEC Blood Urea Nitrogen 10 MG/DL Creatinine 0.51 MG/DL Random Glucose 84 MG/DL Total Protein 6.7 GM/DL Albumin 3.2 GM/DL Calcium Level 8.6 MG/DL Alkaline Phosphatase 112 U/L Aspartate Amino Transf (AST/SGOT) 69 U/L Alanine Aminotransferase (ALT/SGPT) 56 U/L Total Bilirubin 1.3 MG/DL Sodium Level 127 MEQ/L Potassium Level 4.0 MEQ/L Chloride Level 95 MEQ/L Carbon Dioxide Level 24.2 MEQ/L Anion Gap 8 MEQ/L Estimat Glomerular Filtration Rate 121 ML/MIN MDM Supervised Visit with DENIZ: Yes Narrative Course The history, exam, and medical decision-making in the associated mid-level provider note were completed with my assistance. I reviewed and agree with the findings presented. I attest that I had a [id number] encounter with the patient on the same day, and personally performed and documented my assessment and findings in the medical record. *My assessment and Findings: 67 year-old woman, recent significant ICH, recovering in nursing facility, here for headache and feeling poorly. CT shows evolving changes with no hydrocephalus or new bleed. Blood pressures elevated. Been elevated in the nursing facility, and a discharge. Recommend continue blood pressure control, pain medication, and outpatient follow-up. Disposition: 01 DISCHARGE HOME Condition: Stable Robbi Chiang MD Jun 21, 2017 13:40
[2017-06-21] MEDS ORDERED: MORPHINE SULFATE 2 MG/ML INJ IV PUSH ONE ×2 (13:45→16:00)
[2017-06-21 14:26] VITALS: BP 199/93; PULSE 62; RESP 16; O2SAT 99
[2017-06-21] MEDS ORDERED: ENALAPRILAT 1.25 MG/ML VIAL IV PUSH ONE (16:00)
[2017-06-21 16:05] VITALS: BP 176/82; PULSE 63; RESP 24; O2SAT 98
[2017-06-21 17:15] VITALS: BP 178/79; PULSE 63; RESP 19; O2SAT 98
[2017-06-21] MEDS ORDERED: NALOXONE HCL 0.4 MG/ML AMP IV PUSH PRN (17:15)
[2017-06-21] MEDS ORDERED: SODIUM CHLORIDE 0.9% FLUSH 10 ML FLUSH IV FLUSH PRN (17:15)
--- NOTE | 2017-06-21 17:37 | HHI.HP ---
[facility] Service [facility] Hospitalists Primary Care Physician Juan Kraft MD Admission Diagnosis intractable headache Diagnoses: (1) Intractable headache Diagnosis: Principal (2) Subdural hematoma Diagnosis: Principal Chief Complaint: Headaches Travel History International Travel<30 Days: No Contact w/Intl Traveler <30 Da: No Traveled to Known Affected Are: No History of Present Illness Written by Iain Lou, acting as scribe for Dr. Rankin on 06/21/17 at 17:28. 67-year-old female with past medical history of HTN, diabetes, aortic valve replacement, A. fib, COPD, CKD, TIA, hypothyroidism, RA, and history of breast cancer. Patient was previously hospitalized here at [facility] and cared under trauma services following a fall at home which resulted in subdural hematoma. At the time of trauma patient was on aspirin and Plavix due to history of A. fib , and bilateral carotid artery stenosis. She was admitted and followed by neurosurgery during her hospitalization, for which there was no surgical intervention. Patient was discharged to nursing facility she has been saying since the day of her discharge from [facility] which was on 06/18. She returns to the emergency department due to ongoing headaches which pain medication has not provided any relief. was at bedside as well as patient states that headaches have been the same since her initial trauma and hospitalization and have never really gone away. She rates pain 9-10/10 and states that pain is on her right side of her head. She has also been having nausea with no vomiting but just dry heaving. believes this might be related to the fact that patient has been taking morphine and Percocet an empty stomach. Denies any fevers, chills, redness of breath, abdominal pain, or diarrhea. Patient does endorse double vision at times as well as dizziness with standing. She also complains of right sided breast pain. She reports that she has a history of breast cancer for which she underwent right breast lumpectomy 5 years ago. reports that patient was due to have bilateral carotid endarterectomy due to carotid artery stenosis however has been unable to take blood thinners due to subdural hematoma. At the moment of my exam patient is in visible comfort due to pain, she is requesting something for pain relief. She also reports that at home she was on BuSpar and Venlafaxine for anxiety and previously was on Xanax. Review of Systems Except as stated in HPI: all other systems reviewed are Neg Past Family Social History Past Medical History SDH HTN DM Aortic valve replacement in May 17, 2017, pig valve Afib COPD CKD stage II TIA Hypothyroidism right breast CA with lumpectomy with chemo and radiation 5 yrs ago RA on Methotrexate takes this Saturdays Bilateral carotid artery stenosis Past Surgical History Appendectomy Tonsillectomy Partial hysterectomy Right breast lumpectomy Allergies: Coded Allergies: codeine (Verified Allergy, Unknown, 06/21/17) Family History Sister: RA Social History Tobacco: Quit 15 yrs ago Alcohol: 1 beer a month Illicit drug use: none reported Physical Exam Vital Signs Vital Signs Date Time Temp Pulse Resp B/P (MAP) Pulse Ox O2 Delivery O2 Flow Rate FiO2 06/21/17 17:15 63 19 178/79 (112) 98 06/21/17 16:05 63 24 176/82 (113) 98 06/21/17 14:45 17 06/21/17 14:26 62 16 199/93 (128) 99 Room Air 06/21/17 11:19 62 16 219/97 (137) 96 Physical Exam GENERAL: This is a well-nourished, well-developed patient, in no apparent distress. SKIN: No rashes, ecchymoses or lesions. Cool and dry. HEAD: Atraumatic. Normocephalic. No temporal or scalp tenderness. EYES: Pupils equal round and reactive. Extraocular motions intact. No scleral icterus. No injection or drainage. ENT: Nose without bleeding, purulent drainage or septal hematoma. Throat without erythema, tonsillar hypertrophy or exudate. Uvula midline. Airway patent. NECK: Trachea midline. No JVD or lymphadenopathy. Supple, nontender, no meningeal signs. CARDIOVASCULAR: Regular rate and rhythm without murmurs, gallops, or rubs. RESPIRATORY: Clear to auscultation. Breath sounds equal bilaterally. No wheezes , rales, or rhonchi. GASTROINTESTINAL: Abdomen soft, non-tender, nondistended. No hepato-splenomegaly , or palpable masses. No guarding. MUSCULOSKELETAL: Extremities without clubbing, cyanosis, or edema. No joint tenderness, effusion, or edema noted. No calf tenderness. Negative Homans sign bilaterally. NEUROLOGICAL: Awake and alert. Cranial nerves II through XII intact. Motor and sensory grossly within normal limits. Five out of 5 muscle strength in all muscle groups. Normal speech. Laboratory Laboratory Tests Test 06/21/17 11:50 White Blood Count 10.9 Red Blood Count 3.79 Hemoglobin 12.1 Hematocrit 35.5 Mean Corpuscular Volume 93.6 Mean Corpuscular Hemoglobin 31.9 Mean Corpuscular Hemoglobin Concent 34.0 Red Cell Distribution Width 15.2 Platelet Count 96 Mean Platelet Volume 12.5 Neutrophils (%) (Auto) 78.3 Lymphocytes (%) (Auto) 9.5 Monocytes (%) (Auto) 10.5 Eosinophils (%) (Auto) 1.3 Basophils (%) (Auto) 0.4 Neutrophils # (Auto) 8.5 Lymphocytes # (Auto) 1.0 Monocytes # (Auto) 1.1 Eosinophils # (Auto) 0.1 Basophils # (Auto) 0.0 CBC Comment AUTO DIFF Differential Comment AUTO DIFF CONFIRMED Platelet Estimate LOW Platelet Morphology Comment ENLARGED [place] Cells 1+ Acanthocytes OCC Prothrombin Time 12.2 Prothromb Time International Ratio 1.2 Activated Partial Thromboplast Time 27.2 Blood Urea Nitrogen 10 Creatinine 0.51 Random Glucose 84 Total Protein 6.7 Albumin 3.2 Calcium Level 8.6 Alkaline Phosphatase 112 Aspartate Amino Transf (AST/SGOT) 69 Alanine Aminotransferase (ALT/SGPT) 56 Total Bilirubin 1.3 Sodium Level 127 Potassium Level 4.0 Chloride Level 95 Carbon Dioxide Level 24.2 Anion Gap 8 Estimat Glomerular Filtration Rate 121 Result Diagram: 06/21/17 1150 06/21/17 1150 Imaging Last Impressions Head CT 06/21/17 1125 Signed Impressions: Service Date/Time: Wednesday, June 21, 2017 11:51 - CONCLUSION: 1. Evolving right-sided subdural hematoma. Slight decrease in size of intraventricular hemorrhage. No new hemorrhage or shift MD Alberta Salgado VTE Risk Assessment Alberta VTE Risk Assessment: Mod/High Risk (score >= 2) VTE Pharm Contraindication: subdural hematoma Caprini Risk Assessment Model Point Value = 1 Point Value = 2 Point Value = 3 Point Value = 5 Age 41-60 Minor surgery BMI > 25 kg/m2 Swollen legs Varicose veins or History of unexplained or recurrent spontaneous Oral contraceptives or hormone replacement Sepsis (< 1 month) Serious lung disease, including pneumonia (< 1 month) Abnormal pulmonary function Acute myocardial infarction Congestive heart failure (< 1 month) History of inflammatory bowel disease Medical patient at bed rest Age 61-74 Arthroscopic surgery Major open surgery (> 45 min) Laparoscopic surgery (> 45 min) Malignancy Confined to bed (> 72 hours) Immobilizing plaster cast Central venous access Age >= 75 History of VTE Family history of VTE Factor V Leiden Prothrombin [id number] Lupus anticoagulant Anticardiolipin antibodies Elevated serum homocysteine Heparin-induced thrombocytopenia Other congenital or acquired thrombophilia Stroke (< 1 month) Elective arthroplasty Hip, pelvis, or leg fracture Acute spinal cord injury (< 1 month) Prophylaxis Regimen Total Risk Factor Score Risk Level Prophylaxis Regimen 0-1 Low Early ambulation 2 Moderate Order ONE of the following: *Sequential Compression Device (SCD) *Heparin 5000 units SQ BID 3-4 Higher Order ONE of the following medications: *Heparin 5000 units SQ TID *Enoxaparin/Lovenox 40 mg SQ daily (WT < 150 kg, CrCl > 30 mL/min) *Enoxaparin/Lovenox 30 mg SQ daily (WT < 150 kg, CrCl > 10-29 mL/min) *Enoxaparin/Lovenox 30 mg SQ BID (WT < 150 kg, CrCl > 30 mL/min) AND/OR *Sequential Compression Device (SCD) 5 or more Highest Order ONE of the following medications: *Heparin 5000 units SQ TID (Preferred with Epidurals) *Enoxaparin/Lovenox 40 mg SQ daily (WT < 150 kg, CrCl > 30 mL/min) *Enoxaparin/Lovenox 30 mg SQ daily (WT < 150 kg, CrCl > 10-29 mL/min) *Enoxaparin/Lovenox 30 mg SQ BID (WT < 150 kg, CrCl > 30 mL/min) AND *Sequential Compression Device (SCD) Assessment and Plan Assessment and Plan 67-year-old female with past medical history of HTN, diabetes, aortic valve replacement, A. fib, COPD, CKD, TIA, hypothyroidism, RA, and history of breast cancer. Patient was previously hospitalized here at [facility] and cared under trauma services following a fall at home which resulted in subdural hematoma. Patient was discharged to nursing facility and returns today due to intractable headaches, particularly, nausea and vomiting. Intractable headache, most likely secondary to subdural hematoma - CT scan of the head reviewed showing evolving right-sided subdural hematoma , slight decrease in size of intraventricular hemorrhage, no new hemorrhage or shift seen. - CBC with platelet count 96. - Consult neurosurgery evaluation resolving SDH long with recommendations on resuming ASA and Plavix, appreciate recommendations - Pain management with the use of by mouth morphine as needed along with IV morphine breakthrough pain - Neuro checks every 4 - Also believe there is an anxiety component involved, restart BuSpar and venlafaxine, one-time dose of lorazepam for now. - Blood pressure control Hypertension, controlled Afib - History of hypertension, initial blood pressure in ED - Patient was provided with IV Vasotec and by mouth clonidine, BP remains elevated - Lisinopril 40 mg by mouth added, hydralazine when necessary - Continue monitoring BP trends - Will have nurse verified patient's home medications so these can be resumed appropriately - HR stable for now, anticoagulation contraindicated secondary to SDH Bilateral carotid artery stenosis - Unable to proceed with revascularization at the moment as patient is unable to be on blood thinners. - Monitor for the moment, resume patients home dose statin once verified. Hypothyroidism - Resume patient's home dose of levothyroxine once verified VTE: - Anticoagulation contraindicated secondary to bleeding, SCD;s Patient Full code Discussed with at bedside. Code Status Full code Iain Lou Jun 21, 2017 17:37
[2017-06-21] MEDS ORDERED: SOD PHOSPHATE/SOD BIPHOSPHATE (ADULT) ENEMA 133ML RECTAL ONE (18:00)
[2017-06-21] MEDS ORDERED: LORazepam 2 MG/ML VIAL IV PUSH ONE (18:30)
[2017-06-21] MEDS: busPIRone HCL 5 MG TAB PO SCH (18:42)
[2017-06-21 21:00] VITALS: BP 189/91; PULSE 66; RESP 16; TEMP 98.2; O2SAT 97
[2017-06-21] MEDS: SODIUM CHLORIDE 0.9% FLUSH 10 ML FLUSH IV FLUSH SCH (21:00)
[2017-06-21] MEDS: hydrALAZINE HCL 20 MG/ML VIAL IV PUSH PRN (21:04)
[2017-06-21 21:35] VITALS: BP 165/82; PULSE 75; RESP 16; O2SAT 98
[2017-06-22] VITALS (10 sets, daily range): BP systolic 142–187; BP diastolic 65–82; PULSE 73–101; RESP 14–24; TEMP 97.9–98.5; O2SAT 97–98
[2017-06-22] MEDS: MORPHINE SULFATE 2 MG/ML INJ IV PUSH PRN ×4 (00:32→21:03)
[2017-06-22] MEDS: hydrALAZINE HCL 20 MG/ML VIAL IV PUSH PRN ×2 (01:20→07:50)
[2017-06-22] MEDS ORDERED: LORazepam 2 MG/ML VIAL IV PUSH ONE (02:00)
--- NOTE | 2017-06-22 02:17 | HHI.NSPN ---
Note Status Status: Progress Note Interval History Diagnosis Subdural hematoma Interval History This is a 67-year-old female with past medical history of HTN, diabetes, aortic valve replacement, A. fib, COPD, CKD, TIA, hypothyroidism, RA, and history of breast cancer. She has been recently hospitalized here at [facility] and cared under trauma services following a fall at home which resulted in subdural hematoma. At the time of trauma patient was on aspirin and Plavix due to history of Atrial fibrillation, and bilateral carotid artery stenosis. She was admitted and followed by me during her hospitalization, and treated in non surgical fashion She was discharged to a nursing facility. She returns to the emergency department due to headaches. She rates pain as severe, on her right side of her head. She has also been having nausea with no vomiting, possibly because she has been has been taking morphine and Percocet an empty stomach. Denies any fevers, chills, redness of breath, abdominal pain, or diarrhea. Occasional double vision at times as well as dizziness with standing. No focal weakness or sensory loss. She had bilateral carotid endarterectomy due to carotid artery stenosis, but has been unable to take blood thinners due to subdural hematoma. CT brain was done. Neurosurgical consult was requested Labs, Micro, & Vital Signs Results Date Time Temp Pulse Resp B/P (MAP) Pulse Ox O2 Delivery O2 Flow Rate FiO2 06/22/17 01:45 88 16 153/67 (95) 98 Room Air 06/22/17 01:19 14 06/22/17 01:18 75 14 185/65 (105) 97 Room Air 06/21/17 21:35 75 16 165/82 (109) 98 Room Air 06/21/17 21:00 98.2 66 16 189/91 (123) 97 Room Air 06/21/17 17:15 63 19 178/79 (112) 98 06/21/17 16:05 63 24 176/82 (113) 98 06/21/17 14:45 17 06/21/17 14:26 62 16 199/93 (128) 99 Room Air 06/21/17 11:19 62 16 219/97 (137) 96 Constitutional Vital Signs Date Time Temp Pulse Resp B/P (MAP) Pulse Ox O2 Delivery O2 Flow Rate FiO2 06/22/17 01:45 88 16 153/67 (95) 98 Room Air 06/22/17 01:19 14 06/22/17 01:18 75 14 185/65 (105) 97 Room Air 06/21/17 21:35 75 16 165/82 (109) 98 Room Air 06/21/17 21:00 98.2 66 16 189/91 (123) 97 Room Air 06/21/17 17:15 63 19 178/79 (112) 98 06/21/17 16:05 63 24 176/82 (113) 98 06/21/17 14:45 17 06/21/17 14:26 62 16 199/93 (128) 99 Room Air 06/21/17 11:19 62 16 219/97 (137) 96 Physical Exam Ms Rosario is alert, awake and oriented to time, place and person. Speech is fluent. Cranial nerve examination: pupils to be equal, round and reactive to light. Extra-ocular movements are intact. Facial motor and sensory function are normal and symmetrical. Gross hearing appears intact. Sternocleidomastoid and trapezius muscles are symmetrical. Other cranial nerves are intact. Neck is soft and supple with a good range of motion without pain. Muscle strength is normal in all muscle groups of both upper and lower extremities. Sensory examination is intact to light touch and pin prick in both the upper and lower extremities. Deep tendon reflexes are symmetrical in both upper and lower extremities. There is a bilateral plantar flexion response. Cerebellar examination is unremarkable, without deficits. Medications Current Medications Current Medications Ondansetron HCl (Zofran Inj) 4 mg ONCE ONCE IVP Last administered on 11:52; Start 06/21/17 at 11:30; Stop 06/21/17 at 11:31; Status DC Sodium Chloride (NS Flush) 2 ml UNSCH PRN IVF FLUSH AFTER USING IV ACCESS; Start 06/21/17 at 11:30 Clonidine (Catapres) 0.1 mg ONCE ONCE PO Last administered on 06/21/17 11:52 ; Start 06/21/17 at 11:30; Stop 06/21/17 at 11:31; Status DC Morphine Sulfate (Morphine Inj) 4 mg ONCE ONCE IV PUSH Last administered on 14:26; Start 06/21/17 at 13:45; Stop 06/21/17 at 13:46; Status DC Morphine Sulfate (Morphine Inj) 4 mg ONCE ONCE IV PUSH Last administered on 16:08; Start 06/21/17 at 16:00; Stop 06/21/17 at 16:04; Status DC Enalaprilat (Vasotec Inj) 1.25 mg ONCE ONCE IV PUSH Last administered on 06/21 16:09; Start 06/21/17 at 16:00; Stop 06/21/17 at 16:04; Status DC Sodium Chloride (NS Flush) 2 ml UNSCH PRN IV FLUSH FLUSH AFTER USING IV ACCESS ; Start 06/21/17 at 17:15 Sodium Chloride (NS Flush) 2 ml BID IV FLUSH ; Start 06/21/17 at 21:00 Naloxone HCl (Narcan Inj) 0.4 mg UNSCH PRN IV PUSH SEE LABEL COMMENTS; Start 06/21/17 at 17:15 Morphine Sulfate (Morphine Inj) 2 mg Q3H PRN IV PUSH breakthrough pain Last administered on 06/22/17 00:32; Start 06/21/17 at 17:15 Morphine Sulfate (Msir) 15 mg Q3H PRN PO pain >5; Start 06/21/17 at 17:15 Hydralazine HCl (Apresoline Inj) 10 mg Q30M PRN IV PUSH bp>160/90 Last administered on 06/22/17 01:20; Start 06/21/17 at 17:15 Buspirone HCl (Buspar) 5 mg TID PO Last administered on 06/21/17 18:42; Start 06/21/17 at 18:00 Venlafaxine HCl (Effexor Xr) 150 mg DAILY PO ; Start 06/22/17 at 09:00 Lisinopril (Prinivil) 40 mg DAILY PO ; Start 06/22/17 at 09:00 Morphine Sulfate (Oramorph Sr) 30 mg DAILY PO ; Start 06/22/17 at 09:00 Sodium Biphosphate/ Sodium Phosphate (Fleets Enema (Adult)) 133 ml ONCE ONCE RECTAL Last administered on 06/21/17 20:14; Start 06/21/17 at 18:00; Stop 06/21/17 at 18:01; Status DC Lorazepam (Ativan Inj) 1 mg ONCE ONCE IV PUSH Last administered on 06/21/17t 18:43; Start 06/21/17 at 18:30; Stop 06/21/17 at 18:31; Status DC Medical Decision Making [facility] Remarks Imaging Last Impressions Head CT 06/21/17 1125 Signed Impressions: Service Date/Time: Wednesday, June 21, 2017 11:51 - CONCLUSION: 1. Evolving right-sided subdural hematoma. Slight decrease in size of intraventricular hemorrhage. No new hemorrhage or shift Joby Elder MD Plan Plan Remarks Caprini VTE Risk Assessment Caprini VTE Risk Assessment: Mod/High Risk (score >= 2) VTE Pharm Contraindication: subdural hematoma Caprini Risk Assessment Model Point Value = 1 Point Value = 2 Point Value = 3 Point Value = 5 Age 41-60 Minor surgery BMI > 25 kg/m2 Swollen legs Varicose veins or History of unexplained or recurrent spontaneous Oral contraceptives or hormone replacement Sepsis (< 1 month) Serious lung disease, including pneumonia (< 1 month) Abnormal pulmonary function Acute myocardial infarction Congestive heart failure (< 1 month) History of inflammatory bowel disease Medical patient at bed rest Age 61-74 Arthroscopic surgery Major open surgery (> 45 min) Laparoscopic surgery (> 45 min) Malignancy Confined to bed (> 72 hours) Immobilizing plaster cast Central venous access Age >= 75 History of VTE Family history of VTE Factor V Leiden Prothrombin [id number] Lupus anticoagulant Anticardiolipin antibodies Elevated serum homocysteine Heparin-induced thrombocytopenia Other congenital or acquired thrombophilia Stroke (< 1 month) Elective arthroplasty Hip, pelvis, or leg fracture Acute spinal cord injury (< 1 month) Prophylaxis Regimen Total Risk Factor Score Risk Level Prophylaxis Regimen 0-1 Low Early ambulation 2 Moderate Order ONE of the following: *Sequential Compression Device (SCD) *Heparin 5000 units SQ BID 3-4 Higher Order ONE of the following medications: *Heparin 5000 units SQ TID *Enoxaparin/Lovenox 40 mg SQ daily (WT < 150 kg, CrCl > 30 mL/min) *Enoxaparin/Lovenox 30 mg SQ daily (WT < 150 kg, CrCl > 10-29 mL/min) *Enoxaparin/Lovenox 30 mg SQ BID (WT < 150 kg, CrCl > 30 mL/min) AND/OR *Sequential Compression Device (SCD) 5 or more Highest Order ONE of the following medications: *Heparin 5000 units SQ TID (Preferred with Epidurals) *Enoxaparin/Lovenox 40 mg SQ daily (WT < 150 kg, CrCl > 30 mL/min) *Enoxaparin/Lovenox 30 mg SQ daily (WT < 150 kg, CrCl > 10-29 mL/min) *Enoxaparin/Lovenox 30 mg SQ BID (WT < 150 kg, CrCl > 30 mL/min) AND *Sequential Compression Device (SCD) Attending Statement 67-year-old female with resolving subdural hematoma. Posttraumatic headaches Post traumatic headaches. Her subdural hematoma is resolving - CT scan of the head reviewed showing evolving right-sided subdural hematoma , slight decrease in size of intraventricular hemorrhage, no new hemorrhage or shift seen. - No need for surgery - Can resume ASA if desired. I will defer to her vascular surgeon or terminal carman to determine if there is a need. She does not need anticoagulation for her SDH Arterial Hypertension, controlled Vasotec and by mouth clonidine Lisinopril 40 mg by mouth added, hydralazine when necessary Atrial fibrillation HR is stable, anticoagulation contraindicated secondary to SDH Hypothyroidism Resume patient's home dose of levothyroxine Pulmonary. aggressive pulmonary toilette, nasotracheal suction, and breathing treatments with nebulizers. Nutrition. Oral diet Renal. monitor closely urine output, BUN and creatinine Endocrine. Monitor serial Acu checks and SSI as needed in detail ID monitor for signs of infection Protonix for stress ulcer prophylaxis Jeff hose and SCD's for DVT prophylaxis. Non surgical. Consider neurology for headaches. Will sign off Maxwell Mcbride MD Jun 22, 2017 02:17
[2017-06-22 07:40] LABS: BASOPHIL # 0.1 TH/MM3 (0-0.2); BASOPHIL % 0.3 % (0.0-2.0); EOSINOPHIL % 0.2 % (0.0-4.0); HEMATOCRIT 39.2 % (35.0-46.0); HEMOGLOBIN 13.4 GM/DL (11.6-15.3); LYMPHOCYTE # 0.9 TH/MM3 (1.0-4.8); MEAN CELL VOLUME 94.5 FL (80.0-100.0); MEAN CORPUSCULAR HEMOGLOBIN 32.2 PG (27.0-34.0); MEAN CORPUSCULAR HGB CONC 34.1 % (32.0-36.0); MEAN PLATELET VOLUME 12.6 FL (7.0-11.0); MONO % 8.8 % (0.0-8.0); MONOCYTE # 1.7 TH/MM3 (0-0.9); NEUT % 85.7 % (16.0-70.0); PLATELET COUNT 115 TH/MM3 (150-450); RED BLOOD COUNT 4.14 MIL/MM3 (4.00-5.30); RED CELL DISTRIBUTION WIDTH 15.6 % (11.6-17.2); WHITE BLOOD COUNT 18.7 TH/MM3 (4.0-11.0)
[2017-06-22 07:58] LABS: BICARBONATE 16.7 MEQ/L (21.0-32.0); CALCIUM 8.8 MG/DL (8.5-10.1); CREATININE 0.46 MG/DL (0.50-1.00)
[2017-06-22] MEDS: busPIRone HCL 5 MG TAB PO SCH ×3 (07:58→18:41)
[2017-06-22] MEDS: MORPHINE SULFATE 30 MG CONTROLLED RELEASE TAB PO SCH (07:59)
[2017-06-22] MEDS: VENLAFAXINE HCL XR 75 MG CAP PO SCH (07:59)
[2017-06-22] MEDS: LISINOPRIL 20 MG TAB PO SCH (07:59)
[2017-06-22] MEDS: SODIUM CHLORIDE 0.9% FLUSH 10 ML FLUSH IV FLUSH SCH ×2 (08:00→21:00)
[2017-06-22] MEDS ORDERED: DEXTROSE 50% IN WATER 50 ML VIAL(D50) IV PUSH PRN (08:30)
[2017-06-22] MEDS ORDERED: GLUCAGON 1 MG/ML VIAL OTHER PRN (08:30)
--- NOTE | 2017-06-22 08:34 | HHI.PR ---
Subjective Remarks f/u; headache in no acute distress. however complaining of moderate to severe headache. had some nausea but with no emesis. afebrile. Objective Vitals Vital Signs Date Time Temp Pulse Resp B/P (MAP) Pulse Ox O2 Delivery O2 Flow Rate FiO2 06/22/17 07:40 81 17 185/81 (115) 98 Room Air 06/22/17 05:34 16 06/22/17 05:21 97.9 77 20 142/66 (91) 97 Room Air 06/22/17 01:45 88 16 153/67 (95) 98 Room Air 06/22/17 01:18 75 14 185/65 (105) 97 Room Air 06/21/17 21:35 75 16 165/82 (109) 98 Room Air 06/21/17 21:00 98.2 66 16 189/91 (123) 97 Room Air 06/21/17 17:15 63 19 178/79 (112) 98 06/21/17 16:05 63 24 176/82 (113) 98 06/21/17 14:45 17 06/21/17 14:26 62 16 199/93 (128) 99 Room Air 06/21/17 11:19 62 16 219/97 (137) 96 Result Diagram: 06/22/1719 06/22/17618 Imaging Last Impressions Head CT 06/21/17 1125 Signed Impressions: Service Date/Time: Wednesday, June 21, 2017 11:51 - CONCLUSION: 1. Evolving right-sided subdural hematoma. Slight decrease in size of intraventricular hemorrhage. No new hemorrhage or shift Joby Elder MD Objective Remarks GENERAL: uncomfortable with the headache CARDIOVASCULAR: Regular rate and irregular rhythm without murmurs, gallops, or rubs. RESPIRATORY: Clear to auscultation. Breath sounds equal bilaterally. No wheezes , rales, or rhonchi. GASTROINTESTINAL: Abdomen soft, non-tender, nondistended. Normal, active bowel sounds MUSCULOSKELETAL: Extremities without clubbing, cyanosis, or edema. NEURO: Alert & Oriented x4 to person, place, time, situation. Moves all ext x4 Medications and IVs Inpatient Medications Buspirone HCl (Buspar) 5 mg TID PO Last administered on 06/22/17t 07:58; Start 06/21/17 at 18:00 Clonidine (Catapres) 0.1 mg ONCE ONCE PO Last administered on 06/21/17 11:52 ; Start 06/21/17 at 11:30; Stop 06/21/17 at 11:31; Status DC Enalaprilat (Vasotec Inj) 1.25 mg ONCE ONCE IV PUSH Last administered on 06/21 16:09; Start 06/21/17 at 16:00; Stop 06/21/17 at 16:04; Status DC Hydralazine HCl (Apresoline Inj) 10 mg Q30M PRN IV PUSH bp>160/90 Last administered on 06/22/17 07:50; Start 06/21/17 at 17:15 Lisinopril (Prinivil) 40 mg DAILY PO Last administered on 06/22/17 07:59; Start 06/22/17 at 09:00 Lorazepam (Ativan Inj) 1 mg ONCE ONCE IV PUSH Last administered on 06/22/17 02:01; Start 06/22/17 at 02:00; Stop 06/22/17 at 02:01; Status DC Morphine Sulfate (Morphine Inj) 2 mg Q3H PRN IV PUSH breakthrough pain Last administered on 06/22/17 05:21; Start 06/21/17 at 17:15 Morphine Sulfate (Msir) 15 mg Q3H PRN PO pain >5; Start 06/21/17 at 17:15 Morphine Sulfate (Oramorph Sr) 30 mg DAILY PO Last administered on 06/22/17 07:59; Start 06/22/17 at 09:00 Naloxone HCl (Narcan Inj) 0.4 mg UNSCH PRN IV PUSH SEE LABEL COMMENTS; Start 06/21/17 at 17:15 Ondansetron HCl (Zofran Inj) 4 mg ONCE ONCE IVP Last administered on 11:52; Start 06/21/17 at 11:30; Stop 06/21/17 at 11:31; Status DC Sodium Biphosphate/ Sodium Phosphate (Fleets Enema (Adult)) 133 ml ONCE ONCE RECTAL Last administered on 06/21/17 20:14; Start 06/21/17 at 18:00; Stop 06/21/17 at 18:01; Status DC Sodium Chloride (NS Flush) 2 ml BID IV FLUSH Last administered on 06/22/17 08 :00; Start 06/21/17 at 21:00 Venlafaxine HCl (Effexor Xr) 150 mg DAILY PO Last administered on 06/22/17 07 :59; Start 06/22/17 at 09:00 A/P Problem List: (1) Intractable headache ICD Code: R51 - Headache (2) Subdural hematoma ICD Code: I62.00 - Nontraumatic subdural hemorrhage, unspecified Assessment and Plan A/P Intractable headache, most likely secondary to subdural hematoma - CT scan of the head reviewed showing evolving right-sided subdural hematoma , slight decrease in size of intraventricular hemorrhage, no new hemorrhage or shift seen. -neurosurgery consult appreciated and no plan for surgical intervention at this time. - Pain management with the use of by mouth morphine as needed along with IV morphine breakthrough pain - Neuro checks every 4 - Also believe there is an anxiety component involved, restarted BuSpar and venlafaxine. -will consult neurology - Blood pressure control Hypertension, not optimally controlled Afib - History of hypertension, initial blood pressure in ED - Lisinopril 40 mg by mouth added, hydralazine when necessary -will resume metoprolol - Continue monitoring BP trends - Will have nurse verified patient's home medications so these can be resumed appropriately - anticoagulation contraindicated secondary to SDH -will consider resuming aspirin hyponatremia - check serum/urine osmolality and urine sodium -start on IV NS -close monitoring of sodium level leukocytosis- - check UA -will repeat CBC in am and will monitor temps Bilateral carotid artery stenosis - Unable to proceed with revascularization at the moment as patient is unable to be on blood thinners. - Monitor for the moment, resume patients home dose statin once verified. Hypothyroidism - Resume patient's home dose of levothyroxine once verified diabetes mellitus - accu-check with SSI VTE: - Anticoagulation contraindicated secondary to bleeding, SCD;s Patient Full code Dominick Tolbert MD Jun 22, 2017 08:34
[2017-06-22 10:21] LABS: SODIUM,RANDOM URINE 52 MEQ/L
[2017-06-22] MEDS: METOPROLOL TARTRATE 25 MG TAB PO SCH ×2 (10:23→21:03)
[2017-06-22] MEDS: SODIUM CHLOR 0.9% 1000 ML INJ 1,000 ML IV SCH ×2 (10:24→19:00)
[2017-06-22 10:28] LABS: OSMOLALITY,URINE 474 MOSM/KG (300-1300)
[2017-06-22] MEDS: INSULIN ASPART SUPPLEMENTAL SCALE SQ SCH ×3 (12:00→21:00)
[2017-06-22] MEDS: LORazepam 0.5 MG TAB PO PRN (13:12)
[2017-06-22] MEDS ORDERED: GADODIAMIDE PF 287 MG/ML 5 ML VIAL (for RAD MRI) IVCONTRAST ONE (14:09)
--- NOTE | 2017-06-22 14:17 | RADRPT ---
EXAM DATE/TIME: 06/22/2017 13:44 [facility] COMPARISON: CT BRAIN W/O CONTRAST, June 13, 2017, 8:44. CT BRAIN W/O CONTRAST, June 21, 2017, 11:51. INDICATIONS : CVA. MEDICAL HISTORY : Carcinoma, breast. Hypertension. SURGICAL HISTORY : Cholecystectomy. Heart valve and left breast. ENCOUNTER: Initial ACUITY: 1 day PAIN SCORE: 0/10 LOCATION: Head. Please note a normal MRA of the brain does not entirely exclude the possibility of a small aneurysm, nor the possibility of distal intracranial vessel disease. TECHNIQUE: 3D time of flight MRA was performed. Source images, multiplanar STS MIP, and 3D volume MIP reconstru ctions were reviewed. FINDINGS: Examination is somewhat limited due to patient motion. Anterior circulation: Distal intracranial internal carotid arteries are patent with flow extending to the middle and anteri or cerebral arteries. There is decreased signal intensity in the left A1 segment likely due to A1 hyp oplasia. There is no evidence for aneurysm, vessel truncation or stenosis, and no evidence for vascul ar malformation. Posterior circulation: Symmetric distal vertebral arteries with flow extending to basilar artery. There is no evidence for aneurysm, vessel truncation or stenosis, and no evidence for vascular malformation. There is a small right subdural hematoma as noted on prior CT examinations. CONCLUSION: 1. 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 2. Redemonstration of right subdural hematoma. 3. Otherwise, unremarkable MRA examination of the brain. Paco Murphy MD on June 22, 2017 at 14:09 Board Certified Radiologist. This report was verified electronically.
--- NOTE | 2017-06-22 14:42 | RADRPT ---
EXAM DATE/TIME: 06/22/2017 13:44 [facility] COMPARISON: Prior head CT 06/15/17, use for comparison. INDICATIONS : Stroke. CONTRAST: 13 cc Omniscan (gadodiamide) IV MEDICAL HISTORY : Carcinoma, breast. Hypertension. SURGICAL HISTORY : Cholecystectomy. Left breast and heart valve. ENCOUNTER: Initial ACUITY: 1 day PAIN SCORE: 0/10 LOCATION: Head. TECHNIQUE: Multiplanar, multisequence MRI of the brain was performed both prior to and following the administrat ion of paramagnetic contrast. FINDINGS: MRI of the brain again demonstrates significant layering areas of likely subdural hemorrhage in both the right and left sides of the supra tentorium brain. The largest amount of hemorrhage is probably in the high right parietal region where the hemorrhage measures up to 4 mm across. It extends from t he high convexities to the temporal tip. There is a small amount of hemorrhage on the left side perfecto g the occipital lobe and the parietal lobes. Ventricles remain mildly prominent. There is some chronic ischemic demyelinization change. There is no mass or mass effect. There is no evidence of any imtraparenchymal abnormalities. Pituitary and clivus is unremarkable. Diffusion weighted sequences showed no evidence of an acute stroke. CONCLUSION: Scattered areas of subdural hemorrhage right greater than left. Similar amount to the previous studi es. No evidence of an acute stroke. Robbi Campos MD on June 22, 2017 at 14:29 Board Certified Radiologist. This report was verified electronically.
--- NOTE | 2017-06-22 15:34 | EKG ---
Date Performed: 06/21/2017 Time Performed: 11:44:40 PTAGE: 67 years EKG: Sinus rhythm NORMAL ECG INTERPRETATION BASED ON A DEFAULT AGE OF 40 YEARS PREVIOUS TRACING : 06/14/2017 12.45 Compared to prior tracing no significant change DOCTOR: Jordan Calvert Interpretating Date/Time 06/22/2017 15:32:47
--- NOTE | 2017-06-22 16:27 | MB ---
cc: GOERGIE FIGUEROA DATE OF CONSULTATION: 06/22/2017 HISTORY OF PRESENT ILLNESS A 67-year-old right-handed woman with history of hypertension, non-insulin dependent diabetes, aortic valve replacement on May 17, 2017 and two weeks before that had gallbladder surgery, atrial fibrillation, hypothyroidism, breast cancer 6 years ago, status post chemo and lumpectomy, no current breast cancer activity noted, by . On June 13, she fell three steps at home, hit her head on the right frontal region, went to the hospital, was sent home and then coming back into the house fell back and hit the back of her head on cement stairs and was subsequently brought in here and was found to have nausea and vomiting and wound up getting intubated, was moving all well. CT scan of her head showed 1 cm right subdural hematoma with some subarachnoid blood along the right tentorium, hemispheric fissure, right hemisphere edema with 3 mm midline shift to the left, intraventricular blood in the occipital horns. Maxillofacial CT was negative for any fracture. Chest CT showed possible pulmonary contusion, focal 12 mm opacity in the left lateral lung, could also be a mass. CT scan of the cervical spine was negative for fracture. CT scan of the pelvis was negative. She had an Echo done that showed EF of 55-60%, aortic valve function was normal. LA size was 44 with a history of atrial fibrillation. She was brought back in here because her blood pressure was high over at rehab and continued to have a headache. MEDICATIONS ON ADMISSION 1. She was on an inhaler. 2. Metoprolol. 3. Cushman. 4. Aspirin. 5. Atorvastatin. 6. Thyroid medicine. 7. Lisinopril. 8. Metformin. 9. Singulair. 10. Spirolactone. 11. Venlafaxine. 12. Plavix. SOCIAL HISTORY Does not smoke or drink. She lives with her . FAMILY HISTORY Negative for cancer, seizure, stroke. REVIEW OF SYSTEMS Her denied any history of hypercholesterolemia, renal, hepatic, pulmonary disease, lupus, ulcer, seizure or stroke. CURRENT MEDICATIONS 1. As needed Imitrex. 2. Trazodone. 3. Lisinopril. 4. Oxycodone. 5. Montelukast. 6. Zofran. 7. 81 of aspirin. 8. Metformin. 9. MorphaBond. 10. Spironolactone. 11. Metoprolol. 12. Venlafaxine. 13. BuSpar 5 t.i.d. 14. Plavix 75 Although, I am not actually sure if she was taking aspirin and Plavix before she came in here from the group home where she was recently in rehab after leaving here, recently discharged on 06/17. PHYSICAL EXAMINATION VITAL SIGNS: Afebrile, 77, 20, the highest blood pressure 219/97 to 160/72. NECK: There are no carotid bruits. HEART: Heart was regular rhythm. I do not detect a murmur. NEURO: Pupils are equal. Visual obrien are full. She is sleepy after morphine but face was symmetric. Tongue was midline. She moved all of her extremities well. Toes are downgoing bilaterally. DTRs trace throughout. She knew the month, she was off on the year. She knows her address. Falls asleep but awakens up fairly easily. Disks appeared to be sharp on the right side. LABORATORY DATA Her white count is 18, hematocrit is normal, platelet count 115, platelet count had dropped as low as 66 on the prior admission but it has come up. Sodium is only 124. BUN and creatinine is normal. Calcium normal. LFTs normal last admission, mildly elevated to 69 AST and 56 ALT this admission. Albumin 3.2. Sodium was 127 yesterday, it is 124 today. ABG done earlier this month which had all been basically normal. IMAGING STUDIES CT of the brain was performed here and showed evolving right-sided subdural decrease size of the intraventricular hemorrhage, no new hemorrhage or shift. Carotid ultrasound last admission showed 70% on the right or greater, 50-69% on the left. IMPRESSION Status post two falls with some subarachnoid hemorrhage and history of carotid disease by CTA, actually 70% bilaterally. History of atrial fibrillation, aortic valve replacement, headache and hypertension. PLAN First of all I would get her blood pressure lower and we need to keep her sodium up. I would check an MRI of the brain to make sure there has not been any strokes or other abnormalities. Check an MRA [id number] with a history of hemorrhage. I might treat her with some steroids which could help the headache. She may have some behavioral issues too, no history of dementia but never took pain well according to her and evidently when she is in a lot of pain she yells a lot, and we will have to monitor that. I will be following her with you in the hospital. Try not to over-sedate her with the narcotics. MD MARÍA Maria/TERI /10:51 AM /3:41 PM
[2017-06-22 20:11] LABS: FREE T4 1.32 NG/DL (0.76-1.46)
[2017-06-23] VITALS (8 sets, daily range): BP systolic 133–208; BP diastolic 61–91; PULSE 61–85; RESP 18–24; TEMP 97.3–99.1; O2SAT 97–99
[2017-06-23] MEDS: MORPHINE SULFATE 2 MG/ML INJ IV PUSH PRN (01:12)
[2017-06-23] MEDS: LORazepam 0.5 MG TAB PO PRN (01:19)
[2017-06-23 01:36] LABS: BICARBONATE 22.1 MEQ/L (21.0-32.0); CALCIUM 8.2 MG/DL (8.5-10.1); CREATININE 0.52 MG/DL (0.50-1.00)
[2017-06-23 02:25] LABS: BACTERIA, URINE MANY /hpf; BILIRUBIN, URINE NEG (NEG); BLOOD, URINE NEG (NEG); GLUCOSE,URINE NEG (NEG); KETONE, URINE 40 mg/dL (NEG); NITRITE,URINE NEG (NEG); SQUAMOUS EPITHELIAL CELL URINE 11 /hpf (0-5); TRANSITIONAL EPI CELLS, URINE <1 /hpf; URINE COLOR YELLOW (YELLW/STRAW); URINE LEUKOCYTE ESTERASE TRACE (NEG)
[2017-06-23] MEDS ORDERED: hydrALAZINE HCL 50 MG TAB PO ONE (06:00)
[2017-06-23] MEDS ORDERED: METOPROLOL TARTRATE 25 MG TAB PO ONE (06:00)
--- NOTE | 2017-06-23 07:58 | HHI.PR ---
Subjective Remarks bp stilll up Objective Vital Signs Date Time Temp Pulse Resp B/P (MAP) Pulse Ox O2 Delivery O2 Flow Rate FiO2 06/23/17 07:20 99.1 81 22 197/81 (119) 98 06/23/17 00:00 97.3 73 24 208/91 (130) 99 06/22/17 21:00 83 06/22/17 20:00 97.9 82 16 187/80 (115) 97 06/22/17 16:25 98.5 73 18 186/82 (116) 98 06/22/17 12:31 98.2 87 18 167/70 (102) 98 06/22/17 11:07 06/22/17 10:27 90 19 160/72 (101) 97 Room Air 06/22/17 08:41 101 24 164/71 (102) 97 Room Air Result Diagram: 06/22/17 0619 06/23/17 0023 Objective Remarks vff 5/5 t/o hosp not yr awake alert speech fluent Assessment and Plan Assessment and Plan imp sdh mri no mets or cva mra neg labs ok na low will try 10 decadron for cabrera needs na up and bp down will fu monday Jordan Staton MD Jun 23, 2017 07:58
[2017-06-23] MEDS: INSULIN ASPART SUPPLEMENTAL SCALE SQ SCH ×4 (08:00→21:18)
[2017-06-23] MEDS: MORPHINE SULFATE 30 MG CONTROLLED RELEASE TAB PO SCH (08:04)
[2017-06-23] MEDS: VENLAFAXINE HCL XR 75 MG CAP PO SCH (08:10)
[2017-06-23] MEDS: busPIRone HCL 5 MG TAB PO SCH ×3 (08:10→17:52)
[2017-06-23] MEDS: LISINOPRIL 20 MG TAB PO SCH (08:11)
[2017-06-23] MEDS: METOPROLOL TARTRATE 25 MG TAB PO SCH ×2 (08:11→21:17)
[2017-06-23] MEDS: SODIUM CHLORIDE 0.9% FLUSH 10 ML FLUSH IV FLUSH SCH ×2 (08:11→21:18)
[2017-06-23] MEDS ORDERED: DEXAMETHASONE SOD PHOS 20 MG/5 ML VIAL IV PUSH ONE (09:00)
[2017-06-23] MEDS: FAMOTIDINE 20 MG TAB PO SCH ×2 (09:32→21:17)
[2017-06-23] MEDS ORDERED: NIFEdipine 30 MG SUSTAINED RELEASE TAB PO ONE (13:00)
[2017-06-23] MEDS: SODIUM CHLOR 0.9% 1000 ML INJ 1,000 ML IV SCH (13:15)
[2017-06-23 13:53] LABS: AUTOMATED NEUTROPHIL # 11.1 TH/MM3 (1.8-7.7); BASOPHIL # 0.1 TH/MM3 (0-0.2); BASOPHIL % 0.4 % (0.0-2.0); EOSINOPHIL # 0.2 TH/MM3 (0-0.4); EOSINOPHIL % 1.4 % (0.0-4.0); HEMATOCRIT 35.4 % (35.0-46.0); HEMOGLOBIN 12.3 GM/DL (11.6-15.3); LYMPH % 10.2 % (9.0-44.0); LYMPHOCYTE # 1.5 TH/MM3 (1.0-4.8); MEAN CELL VOLUME 91.7 FL (80.0-100.0); MEAN CORPUSCULAR HEMOGLOBIN 31.8 PG (27.0-34.0); MEAN CORPUSCULAR HGB CONC 34.7 % (32.0-36.0); MEAN PLATELET VOLUME 12.2 FL (7.0-11.0); MONO % 11.9 % (0.0-8.0); MONOCYTE # 1.7 TH/MM3 (0-0.9); NEUT % 76.1 % (16.0-70.0); PLATELET COUNT 84 TH/MM3 (150-450); RED BLOOD COUNT 3.86 MIL/MM3 (4.00-5.30); RED CELL DISTRIBUTION WIDTH 15.2 % (11.6-17.2); WHITE BLOOD COUNT 14.6 TH/MM3 (4.0-11.0)
[2017-06-23] MEDS ORDERED: SODIUM CHLORIDE 1 GRAM TAB PO ONE (18:00)
--- NOTE | 2017-06-23 18:09 | HHI.PR ---
Subjective Remarks Patient sleeping, wakes up for exam. Reports pain is currently under control. Denies any chest pain or shortness of breath. No focal weakness. Objective Vital Signs Date Time Temp Pulse Resp B/P (MAP) Pulse Ox O2 Delivery O2 Flow Rate FiO2 06/23/17 17:46 74 06/23/17 16:19 98.3 74 18 162/68 (99) 97 06/23/17 12:00 69 06/23/17 12:00 98.1 70 18 182/84 (116) 97 06/23/17 08:38 98.4 76 18 180/77 (111) 97 06/23/17 07:20 99.1 81 22 197/81 (119) 98 06/23/17 00:00 97.3 73 24 208/91 (130) 99 06/22/17 21:00 83 06/22/17 20:00 97.9 82 16 187/80 (115) 97 I/O 06/22/17 06/22/17 06/22/17 06/23/17 06/23/17 06/23/17 07:00 15:00 23:00 07:00 15:00 23:00 Intake Total 240 ml Balance 240 ml Intake Oral 240 ml # Voids 1 2 5 # Bowel Movements 0 0 Result Diagram: 06/23/17 1326 06/23/17 0023 Objective Remarks GENERAL: patient lying in bed. Sleeping, wakes up for exam. SKIN: Warm and dry. HEAD: Normocephalic. EYES: No scleral icterus. No injection or drainage. NECK: Supple, trachea midline. No JVD. CARDIOVASCULAR: Regular rate and rhythm without murmurs, gallops, or rubs. RESPIRATORY: Breath sounds equal bilaterally. No accessory muscle use. GASTROINTESTINAL: Abdomen soft, non-tender, nondistended. MUSCULOSKELETAL: No cyanosis, or edema. BACK: Nontender without obvious deformity. No CVA tenderness. A/P Assessment and Plan //Intractable headache, most likely secondary to subdural hematoma - CT scan of the head reviewed showing evolving right-sided subdural hematoma , slight decrease in size of intraventricular hemorrhage, no new hemorrhage or shift seen. -neurosurgery consult appreciated and no plan for surgical intervention at this time. - Pain management with the use of by mouth morphine as needed along with IV morphine breakthrough pain - Neuro checks every 4 - Also believe there is an anxiety component involved, restarted BuSpar and venlafaxine. -will consult neurology - Blood pressure control //Hypertension, not optimally controlled //Afib - History of hypertension, initial blood pressure in ED 219/ - Lisinopril 40 mg by mouth added, hydralazine when necessary -will resume metoprolol - Continue monitoring BP trends - Will have nurse verified patient's home medications so these can be resumed appropriately - anticoagulation contraindicated secondary to SDH -will consider resuming aspirin =06/23. Add nifedipine for blood pressure control. Continue to monitor. //hyponatremia - check serum/urine osmolality and urine sodium -start on IV NS -close monitoring of sodium level = 06/23. Sodium level 125still. Reviewed labs. Hypoosmotic hypervolemic hyponatremia versus isovolemic. Nevertheless regimen would be fluid restricting. We'll also add by mouth sodium tabs. Expect to improve by tomorrow.. Recommend discontinuing sodium tabs tomorrow if improved. //leukocytosis- - check UA -will repeat CBC in am and will monitor temps = Likely secondary to pain versus steroids. UA was sent for culture, however patient asymptomatic. //Bilateral carotid artery stenosis - Unable to proceed with revascularization at the moment as patient is unable to be on blood thinners. - Monitor for the moment, resume patients home dose statin once verified. //Hypothyroidism - Resume patient's home dose of levothyroxine once verified //diabetes mellitus - accu-check with SSI //VTE: - Anticoagulation contraindicated secondary to bleeding, SCD;s Patient Full code Discharge Planning neurology following. Continued intractable headache, hyponatremia. Neurology to follow up on Monday. PT evaluation pending. Jonatan Bush MD Jun 23, 2017 18:09
[2017-06-24 00:45] VITALS: BP 130/61; PULSE 70; RESP 20; TEMP 98.3; O2SAT 96
[2017-06-24 04:47] LABS: AUTOMATED NEUTROPHIL # 13.7 TH/MM3 (1.8-7.7); BASOPHIL % 0.1 % (0.0-2.0); HEMATOCRIT 36.5 % (35.0-46.0); HEMOGLOBIN 12.4 GM/DL (11.6-15.3); LYMPHOCYTE # 0.6 TH/MM3 (1.0-4.8); MEAN CELL VOLUME 92.9 FL (80.0-100.0); MEAN CORPUSCULAR HEMOGLOBIN 31.6 PG (27.0-34.0); MEAN PLATELET VOLUME 12.3 FL (7.0-11.0); MONO % 4.5 % (0.0-8.0); MONOCYTE # 0.7 TH/MM3 (0-0.9); NEUT % 91.4 % (16.0-70.0); PLATELET COUNT 79 TH/MM3 (150-450); RED BLOOD COUNT 3.93 MIL/MM3 (4.00-5.30); RED CELL DISTRIBUTION WIDTH 15.4 % (11.6-17.2)
[2017-06-24 04:54] VITALS: BP 141/64; PULSE 65; RESP 20; TEMP 98.5; O2SAT 95
[2017-06-24 04:58] LABS: ALBUMIN 3.1 GM/DL (3.4-5.0); BICARBONATE 23.6 MEQ/L (21.0-32.0); CALCIUM 8.8 MG/DL (8.5-10.1); CREATININE 0.44 MG/DL (0.50-1.00)
[2017-06-24 05:21] LABS: ACANTHOCYTES OCC (NORMAL)
[2017-06-24] MEDS: INSULIN ASPART SUPPLEMENTAL SCALE SQ SCH ×4 (08:00→20:26)
[2017-06-24] MEDS: MORPHINE SULFATE 15 MG TAB PO PRN ×4 (08:03→23:46)
[2017-06-24] MEDS: VENLAFAXINE HCL XR 75 MG CAP PO SCH (08:51)
[2017-06-24] MEDS: MORPHINE SULFATE 30 MG CONTROLLED RELEASE TAB PO SCH (08:51)
[2017-06-24] MEDS: FAMOTIDINE 20 MG TAB PO SCH ×2 (08:52→20:26)
[2017-06-24] MEDS: NIFEdipine 30 MG SUSTAINED RELEASE TAB PO SCH (08:52)
[2017-06-24] MEDS: SODIUM CHLORIDE 1 GRAM TAB PO SCH (08:53)
[2017-06-24] MEDS: METOPROLOL TARTRATE 25 MG TAB PO SCH ×2 (08:53→20:25)
[2017-06-24] MEDS: LISINOPRIL 20 MG TAB PO SCH (08:53)
[2017-06-24] MEDS: busPIRone HCL 5 MG TAB PO SCH ×3 (08:54→16:40)
[2017-06-24 08:58] VITALS: BP 129/60; PULSE 76; RESP 20; TEMP 97.8; O2SAT 99
[2017-06-24] MEDS: SODIUM CHLORIDE 0.9% FLUSH 10 ML FLUSH IV FLUSH SCH ×2 (09:00→20:26)
--- NOTE | 2017-06-24 09:24 | HHI.PR ---
Subjective Remarks Headaches improved today. However she feels dizzy. No new motor deficit. Speech is at baseline. Denies nausea or vomiting diarrhea or constipation. Denies chest pain or shortness of breath. Objective Vitals Vital Signs Date Time Temp Pulse Resp B/P (MAP) Pulse Ox O2 Delivery O2 Flow Rate FiO2 06/24/17 08:58 97.8 76 20 129/60 (83) 99 06/24/17 04:54 98.5 65 20 141/64 (89) 95 06/24/17 00:45 98.3 70 20 130/61 (84) 96 06/23/17 20:48 98.1 85 19 133/61 (85) 97 06/23/17 17:46 74 06/23/17 16:19 98.3 74 18 162/68 (99) 97 06/23/17 12:00 69 06/23/17 12:00 98.1 70 18 182/84 (116) 97 I/O 06/23/17 06/23/17 06/23/17 06/24/17 06/24/17 06/24/17 07:00 15:00 23:00 07:00 15:00 23:00 Intake Total 240 ml 427 ml Output Total 650 ml Balance 240 ml 427 ml -650 ml Intake Oral 240 ml IV Total 427 ml Output Urine Total 650 ml # Voids 5 3 1 # Bowel Movements 0 Result Diagram: 06/24/17 0400 06/24/17 0400 Imaging Last Impressions Head Magnetic Resonance Angiography 06/22/17 1059 Signed Impressions: Service Date/Time: June 13:44 - CONCLUSION: 1. 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 2. Redemonstration of right subdural hematoma. 3. Otherwise, unremarkable MRA examination of the brain. Paco Murphy MD Brain MRI 06/22/17 1059 Signed Impressions: Service Date/Time: June 13:44 - CONCLUSION: Scattered areas of subdural hemorrhage right greater than left. Similar amount to the previous studies. No evidence of an acute stroke. Robbi Campos MD Head CT 06/21/17 1125 Signed Impressions: Service Date/Time: Wednesday, June 21, 2017 11:51 - CONCLUSION: 1. Evolving right-sided subdural hematoma. Slight decrease in size of intraventricular hemorrhage. No new hemorrhage or shift Joby Elder MD Objective Remarks GENERAL: patient lying in bed. Sleeping, wakes up for exam. CARDIOVASCULAR: Regular rate and rhythm without murmurs, gallops, or rubs. RESPIRATORY: Breath sounds equal bilaterally. No accessory muscle use. GASTROINTESTINAL: Abdomen soft, non-tender, nondistended. MUSCULOSKELETAL: No cyanosis, or edema. BACK: Nontender without obvious deformity. No CVA tenderness. A/P Problem List: (1) Intractable headache ICD Code: R51 - Headache (2) Subdural hematoma ICD Code: I62.00 - Nontraumatic subdural hemorrhage, unspecified Assessment and Plan Intractable headache, most likely secondary to subdural hematoma CT scan of the head reviewed showing evolving right-sided subdural hematoma, slight decrease in size of intraventricular hemorrhage, no new hemorrhage or shift seen. Neurosurgery consult appreciated and no plan for surgical intervention at this time. Pain management with the use of by mouth morphine as needed along with IV morphine breakthrough pain Neuro checks every 4 Also believe there is an anxiety component involved, restarted BuSpar and venlafaxine Consult neurology Blood pressure control Meclizine for dizziness Hypertension, not optimally controlled Afib History of hypertension, initial blood pressure in ED 219/97 Lisinopril 40 mg by mouth added, hydralazine when necessary Resume metoprolol Continue monitoring BP trends Will have nurse verified patient's home medications so these can be resumed appropriately Anticoagulation contraindicated secondary to SDH Will consider resuming aspirin Added nifedipine for blood pressure control. Continue to monitor. Hyponatremia check serum/urine osmolality and urine sodium on IV NS close monitoring of sodium level 06/23. Sodium level 125still. Reviewed labs. Hypoosmotic hypervolemic hyponatremia versus isovolemic. Nevertheless regimen would be fluid restricting. We'll also add by mouth sodium tabs. 06/24/ Na 130 continue Na tablets monitor Na level . DC sodium tomorrow if normal Na level Hypophosphatemia: Replace with PO potassium phosphate one dose 1000 mg. Monitor and replace as need. Leukocytosis- Likely secondary to pain versus steroids. will repeat CBC in am and will monitor temps UA with GNR, Start ciprofloxacin Bilateral carotid artery stenosis Unable to proceed with revascularization at the moment as patient is unable to be on blood thinners. Monitor for the moment, resume patients home dose statin once verified. Hypothyroidism - Resume patient's home dose of levothyroxine once verified Diabetes mellitus type 2 accu-check with SSI DVT ppx:- Anticoagulation contraindicated secondary to bleeding, SCD;s Patient Full code Discharge Planning Neurology following. Continued intractable headache, hyponatremia. Neurology to follow up on Monday. PT recommends Rehab Hina Griffiths MD Jun 24, 2017 09:24
[2017-06-24] MEDS ORDERED: POTASSIUM PHOSPHATE MONOBASIC 500 MG TAB PO ONE (10:00)
[2017-06-24 12:25] VITALS: BP 109/58; PULSE 65; RESP 20; TEMP 97.2; O2SAT 97
[2017-06-24] MEDS ORDERED: MECLIZINE HCL 25 MG TAB PO PRN (15:30)
[2017-06-24 16:14] VITALS: BP 112/55; PULSE 67; RESP 18; TEMP 97.6; O2SAT 96
[2017-06-24] MEDS: CIPROFLOXACIN 500 MG TAB PO SCH (20:26)
[2017-06-24 20:55] VITALS: BP 147/65; PULSE 68; RESP 18; TEMP 97.9; O2SAT 96
--- NOTE | 2017-06-24 22:48 | RADRPT ---
EXAM DATE/TIME: 06/24/2017 21:52 [facility] COMPARISON: No previous studies available for comparison. INDICATIONS : Right arm swelling. MEDICAL HISTORY : Gastroesophageal reflux disease. Hypertension. Gallbladder disease. Arthritis. Diabetes. Carcinom a, right breast. Chemotherapy. SURGICAL HISTORY : Cholecystectomy. Lasik surgery. Heart valve replacement. ENCOUNTER: Initial ACUITY: 1 week PAIN SCORE: 8/10 LOCATION: Right arm. FINDINGS: There is spontaneous flow documented in the brachial, basilic, cephalic, axillary, and subclavian vei ns. The vessels are compressible and augmentation response is documented. No filling defects are se en. The flow is phasic with respiration. Direction of flow in the jugular vein is caudal. CONCLUSION: No evidence of right upper extremity DVT. Juan Pablo Samano MD on June 24, 2017 at 22:46 Board Certified Radiologist. This report was verified electronically.
[2017-06-25] VITALS (7 sets, daily range): BP systolic 138–155; BP diastolic 62–89; PULSE 62–74; RESP 17–20; TEMP 97.5–98; O2SAT 95–100
[2017-06-25 07:03] LABS: AUTOMATED NEUTROPHIL # 8.8 TH/MM3 (1.8-7.7); BASOPHIL % 0.3 % (0.0-2.0); EOSINOPHIL # 0.2 TH/MM3 (0-0.4); EOSINOPHIL % 1.5 % (0.0-4.0); HEMATOCRIT 34.3 % (35.0-46.0); HEMOGLOBIN 11.3 GM/DL (11.6-15.3); LYMPH % 15.8 % (9.0-44.0); LYMPHOCYTE # 1.9 TH/MM3 (1.0-4.8); MEAN CELL VOLUME 95.1 FL (80.0-100.0); MEAN CORPUSCULAR HEMOGLOBIN 31.2 PG (27.0-34.0); MEAN CORPUSCULAR HGB CONC 32.8 % (32.0-36.0); MONOCYTE # 0.9 TH/MM3 (0-0.9); NEUT % 74.4 % (16.0-70.0); PLATELET COUNT 72 TH/MM3 (150-450); RED BLOOD COUNT 3.61 MIL/MM3 (4.00-5.30); RED CELL DISTRIBUTION WIDTH 15.3 % (11.6-17.2); WHITE BLOOD COUNT 11.8 TH/MM3 (4.0-11.0)
[2017-06-25 07:08] LABS: BICARBONATE 25.8 MEQ/L (21.0-32.0); CALCIUM 8.3 MG/DL (8.5-10.1); CREATININE 0.42 MG/DL (0.50-1.00); MAGNESIUM 1.8 MG/DL (1.5-2.5)
[2017-06-25] MEDS: INSULIN ASPART SUPPLEMENTAL SCALE SQ SCH ×4 (08:00→20:08)
[2017-06-25] MEDS: SODIUM CHLORIDE 0.9% FLUSH 10 ML FLUSH IV FLUSH SCH ×2 (09:00→20:08)
[2017-06-25] MEDS: METOPROLOL TARTRATE 25 MG TAB PO SCH ×2 (09:05→20:08)
[2017-06-25] MEDS: NIFEdipine 30 MG SUSTAINED RELEASE TAB PO SCH (09:06)
[2017-06-25] MEDS: SODIUM CHLORIDE 1 GRAM TAB PO SCH (09:06)
[2017-06-25] MEDS: busPIRone HCL 5 MG TAB PO SCH ×3 (09:06→18:00)
[2017-06-25] MEDS: VENLAFAXINE HCL XR 75 MG CAP PO SCH (09:06)
[2017-06-25] MEDS: MORPHINE SULFATE 30 MG CONTROLLED RELEASE TAB PO SCH (09:06)
[2017-06-25] MEDS: FAMOTIDINE 20 MG TAB PO SCH ×2 (09:06→20:08)
[2017-06-25] MEDS: CIPROFLOXACIN 500 MG TAB PO SCH ×2 (09:07→20:08)
[2017-06-25] MEDS: LISINOPRIL 20 MG TAB PO SCH (09:07)
--- NOTE | 2017-06-25 09:44 | HHI.PR ---
Subjective Remarks Follow-up headache, right arm pain. The patient reports significant pain ongoing in the right arm. States that she is unable to lift the arm. Headache is improving. Denies chest pain or dyspnea. Objective Vitals Vital Signs Date Time Temp Pulse Resp B/P (MAP) Pulse Ox O2 Delivery O2 Flow Rate FiO2 06/25/17 08:19 97.8 65 20 138/68 (91) 98 06/25/17 04:30 97.7 62 17 145/65 (91) 95 06/25/17 00:52 97.6 64 17 140/62 (88) 96 06/25/17 00:05 67 06/24/17 20:55 97.9 68 18 147/65 (92) 96 06/24/17 16:14 97.6 67 18 112/55 (74) 96 06/24/17 12:25 97.2 65 20 109/58 (75) 97 I/O 06/24/17 06/24/17 06/24/17 06/25/17 06/25/17 06/25/17 07:00 15:00 23:00 07:00 15:00 23:00 Intake Total 480 ml 240 ml Output Total 650 ml Balance -650 ml 480 ml 240 ml Intake Oral 480 ml 240 ml Output Urine Total 650 ml # Voids 3 1 1 # Bowel Movements 2 Result Diagram: 06/25/17 0530 06/25/17 0530 Imaging Last Impressions Upper Extremity Ultrasound 06/24/17 0000 Signed Impressions: Service Date/Time: Saturday, June 24, 2017 21:52 - CONCLUSION: No evidence of right upper extremity DVT. Juan Pablo Samano MD Head Magnetic Resonance Angiography 06/22/17 1059 Signed Impressions: Service Date/Time: June 13:44 - CONCLUSION: 1. 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 2. Redemonstration of right subdural hematoma. 3. Otherwise, unremarkable MRA examination of the brain. Paco Murphy MD Brain MRI 06/22/17 1059 Signed Impressions: Service Date/Time: June 13:44 - CONCLUSION: Scattered areas of subdural hemorrhage right greater than left. Similar amount to the previous studies. No evidence of an acute stroke. Robbi Campos MD Head CT 06/21/17 1125 Signed Impressions: Service Date/Time: Wednesday, June 21, 2017 11:51 - CONCLUSION: 1. Evolving right-sided subdural hematoma. Slight decrease in size of intraventricular hemorrhage. No new hemorrhage or shift Joby Elder MD Objective Remarks General: Elderly female in no acute distress. Heart: Regular rate and rhythm. No murmur. Lungs: Clear to auscultation bilaterally. No wheezes, rales, or rhonchi. Breathing is nonlabored. Abdomen: Soft, nontender, nondistended. Extremities: No lower extremity edema. Right upper extremity is swollen. Patient with decreased range of motion of the right upper extremity at the shoulder. Psych: Alert and oriented. Procedures None Urinary Catheter: No Vascular Central Line Catheter: No A/P Problem List: (1) Intractable headache ICD Code: R51 - Headache (2) Subdural hematoma ICD Code: I62.00 - Nontraumatic subdural hemorrhage, unspecified Assessment and Plan 1. Subdural hematoma: Patient has known subdural hematoma from recent fall. CT shows evolving right-sided subdural hematoma with slight decrease in the size of intraventricular hemorrhage. No new hemorrhage or shift seen. Appreciate neurosurgery recommendations. No surgical intervention planned at this time. 2. Intractable headache: Likely secondary to subdural hematoma. Headache is improving. Continue blood pressure control, pain medication. Appreciate neurology recommendations. 3. Hypertension: Blood pressure control improving. Continue lisinopril, metoprolol. Hydralazine as needed. 4. Hyponatremia: Sodium improved. Continue sodium supplementation. Plan to discontinue sodium tablets if serum sodium reaches normal limits. 5. Hypophosphatemia: Resolved with supplementation. 6. Leukocytosis: Likely stress reaction. Improving. 7. UTI: Urine culture growing gram-negative rods. Continue antibiotics. 8. Bilateral carotid artery stenosis: Unable to proceed with revascularization procedure as patient cannot be on blood thinners due to subdural hematoma. 9. Hypothyroidism: Continue Synthroid. 10. Diabetes mellitus type 2: Monitor Accu-Cheks and cover with sliding scale insulin. 11. Right arm pain: Patient reports history of lymphedema. Ultrasound is negative for DVT. Occupational therapy evaluation. 12. DVT prophylaxis: SCDs. Chemical prophylaxis contraindicated secondary to subdural hematoma. Discharge Planning Possible discharge to rehabilitation next 1-2 days pending further clinical improvement and neurology clearance. Jos Villalta MD Jun 25, 2017 09:44
[2017-06-25] MEDS ORDERED: diphenhydrAMINE HCL 25 MG CAP PO PRN (10:00)
[2017-06-25] MEDS: MORPHINE SULFATE 15 MG TAB PO PRN (17:16)
[2017-06-25] MEDS: traZODone HCL 50 MG TAB PO SCH (20:08)
[2017-06-26] VITALS (7 sets, daily range): BP systolic 99–151; BP diastolic 58–67; PULSE 62–91; RESP 19–20; TEMP 97.1–98.5; O2SAT 96–98
[2017-06-26 07:45] LABS: BICARBONATE 28.9 MEQ/L (21.0-32.0); CALCIUM 9.1 MG/DL (8.5-10.1); CREATININE 0.53 MG/DL (0.50-1.00)
[2017-06-26] MEDS: INSULIN ASPART SUPPLEMENTAL SCALE SQ SCH ×4 (08:00→20:56)
[2017-06-26] MEDS: SODIUM CHLORIDE 0.9% FLUSH 10 ML FLUSH IV FLUSH SCH ×2 (09:00→20:51)
[2017-06-26] MEDS: FAMOTIDINE 20 MG TAB PO SCH ×2 (09:09→20:51)
[2017-06-26] MEDS: busPIRone HCL 5 MG TAB PO SCH ×3 (09:09→17:53)
[2017-06-26] MEDS: SODIUM CHLORIDE 1 GRAM TAB PO SCH (09:09)
[2017-06-26] MEDS: MORPHINE SULFATE 30 MG CONTROLLED RELEASE TAB PO SCH (09:10)
[2017-06-26] MEDS: VENLAFAXINE HCL XR 75 MG CAP PO SCH (09:10)
[2017-06-26] MEDS: CIPROFLOXACIN 500 MG TAB PO SCH ×2 (09:10→20:51)
[2017-06-26] MEDS: LISINOPRIL 20 MG TAB PO SCH (09:10)
[2017-06-26] MEDS: NIFEdipine 30 MG SUSTAINED RELEASE TAB PO SCH (09:10)
[2017-06-26] MEDS: METOPROLOL TARTRATE 25 MG TAB PO SCH ×2 (09:10→20:51)
--- NOTE | 2017-06-26 10:36 | HHI.PR ---
Subjective Remarks Follow up headache, right arm pain. The patient reports ongoing headache that is worse this morning. She is able to use her right arm more today, but states that it is still painful. Objective Vitals Vital Signs Date Time Temp Pulse Resp B/P (MAP) Pulse Ox O2 Delivery O2 Flow Rate FiO2 06/26/17 08:43 97.1 78 20 151/65 (93) 96 06/26/17 04:40 98.4 62 19 120/66 (84) 96 06/26/17 00:54 71 06/26/17 00:15 97.9 79 19 138/67 (90) 96 06/25/17 20:05 97.7 73 19 155/72 (99) 96 06/25/17 16:15 98.0 74 18 141/89 (106) 98 06/25/17 12:13 97.5 68 18 153/70 (97) 100 I/O 06/25/17 06/25/17 06/25/17 06/26/17 06/26/17 06/26/17 07:00 15:00 23:00 07:00 15:00 23:00 Intake Total 240 ml 960 ml 500 ml 600 ml Balance 240 ml 960 ml 500 ml 600 ml Intake Oral 240 ml 960 ml 500 ml 600 ml # Voids 1 0 3 # Bowel Movements 0 0 Result Diagram: 06/25/17 0530 06/26/17 0700 Imaging Last Impressions Upper Extremity Ultrasound 06/24/17 0000 Signed Impressions: Service Date/Time: Saturday, June 24, 2017 21:52 - CONCLUSION: No evidence of right upper extremity DVT. Juan Pablo Samano MD Head Magnetic Resonance Angiography 06/22/17 1059 Signed Impressions: Service Date/Time: June 13:44 - CONCLUSION: 1. 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 2. Redemonstration of right subdural hematoma. 3. Otherwise, unremarkable MRA examination of the brain. Paco Murphy MD Brain MRI 06/22/17 1059 Signed Impressions: Service Date/Time: June 13:44 - CONCLUSION: Scattered areas of subdural hemorrhage right greater than left. Similar amount to the previous studies. No evidence of an acute stroke. Robbi Campos MD Head CT 06/21/17 1125 Signed Impressions: Service Date/Time: Wednesday, June 21, 2017 11:51 - CONCLUSION: 1. Evolving right-sided subdural hematoma. Slight decrease in size of intraventricular hemorrhage. No new hemorrhage or shift Joby Elder MD Objective Remarks General: Elderly female in no acute distress. HEENT: Ecchymosis on the right side of head and neck. Heart: Regular rate and rhythm. No murmur. Lungs: Clear to auscultation bilaterally. No wheezes, rales, or rhonchi. Breathing is nonlabored. Abdomen: Soft, nontender, nondistended. Extremities: No lower extremity edema. Right upper extremity swelling slightly improved. Patient has better range of motion of the right upper extremity today , but still limited by pain. Psych: Alert and oriented. Procedures None Urinary Catheter: No Vascular Central Line Catheter: No A/P Problem List: (1) Intractable headache ICD Code: R51 - Headache (2) Subdural hematoma ICD Code: I62.00 - Nontraumatic subdural hemorrhage, unspecified Assessment and Plan 1. Subdural hematoma: Patient has known subdural hematoma from recent fall. CT shows evolving right-sided subdural hematoma with slight decrease in the size of intraventricular hemorrhage. No new hemorrhage or shift seen. Appreciate neurosurgery recommendations. No surgical intervention planned at this time. 2. Intractable headache: Likely secondary to subdural hematoma. Headache is worse today. Continue blood pressure control, pain medication. Appreciate neurology recommendations. Repeat head CT. 3. Hypertension: Continue lisinopril, metoprolol, nifedipine. 4. Hyponatremia: Sodium improved. Continue sodium supplementation. Plan to discontinue sodium tablets if serum sodium reaches normal limits. 5. Hypophosphatemia: Resolved with supplementation. 6. Leukocytosis: Likely stress reaction. Improving. 7. UTI: Urine culture growing gram-negative rods. Continue antibiotics. 8. Bilateral carotid artery stenosis: Unable to proceed with revascularization procedure as patient cannot be on blood thinners due to subdural hematoma. 9. Hypothyroidism: Continue Synthroid. 10. Diabetes mellitus type 2: Monitor Accu-Cheks and cover with sliding scale insulin. 11. Right arm pain: Patient reports history of lymphedema. Ultrasound is negative for DVT. Occupational therapy evaluation. 12. DVT prophylaxis: SCDs. Chemical prophylaxis contraindicated secondary to subdural hematoma. Discharge Planning Possible discharge to rehabilitation next 1-2 days pending further clinical improvement and neurology clearance. Jos Villalta MD Jun 26, 2017 10:36
[2017-06-26] MEDS: MORPHINE SULFATE 2 MG/ML INJ IV PUSH PRN (10:38)
[2017-06-26] MEDS: MORPHINE SULFATE 15 MG TAB PO PRN ×3 (14:09→20:51)
--- NOTE | 2017-06-26 15:24 | RADRPT ---
EXAM DATE/TIME: 06/26/2017 15:11 [facility] COMPARISON: CT BRAIN W/O CONTRAST, June 21, 2017, 11:51. INDICATIONS : Headaches, post traumatic injury, subdural hematoma. RADIATION DOSE: 34.48 CTDIvol (mGy) MEDICAL HISTORY : Cardiovascular disease. Hypertension. Diabetes mellitus type 2.Breast cancer. SURGICAL HISTORY : None. ENCOUNTER: Subsequent ACUITY: 2 weeks PAIN SCALE: 8/10 LOCATION: Bilateral cranial posterior side. TECHNIQUE: Multiple contiguous axial images were obtained of the head. Using automated exposure control and adj ustment of the mA and/or kV according to patient size, radiation dose was kept as low as reasonably a chievable to obtain optimal diagnostic quality images. DICOM format image data is available electro nically for review and comparison. FINDINGS: CEREBRUM: Involving right parietal subdural hematoma again seen. No new hemorrhage. No new mass effect. No midl ine shift. No evidence acute infarct. Small amount of layering dependent intraventricular hemorrhage unchanged. Size of ventricles unchanged. No evidence of intracranial mass. POSTERIOR FOSSA: The cerebellum and brainstem are intact. The 4th ventricle is midline. The cerebellopontine angle i s unremarkable. EXTRACRANIAL: The visualized portion of the orbits is intact. SKULL: The calvaria is intact. No evidence of skull fracture. CONCLUSION: Involving right parietal subdural hematoma and small amount of intraventricular hemorrhage. Juan Pablo Samano MD on June 26, 2017 at 15:18 Board Certified Radiologist. This report was verified electronically.
[2017-06-26] MEDS: traZODone HCL 50 MG TAB PO SCH (20:51)
[2017-06-27] VITALS (8 sets, daily range): BP systolic 112–139; BP diastolic 54–65; PULSE 70–90; RESP 18–20; TEMP 97.1–98.9; O2SAT 95–100
[2017-06-27] MEDS: MORPHINE SULFATE 15 MG TAB PO PRN ×2 (00:37→06:24)
--- NOTE | 2017-06-27 07:58 | HHI.PR ---
Subjective Remarks bp better still cabrera Objective Vital Signs Date Time Temp Pulse Resp B/P (MAP) Pulse Ox O2 Delivery O2 Flow Rate FiO2 06/27/17 05:44 97.7 75 18 130/62 (84) 96 06/27/17 04:28 70 06/27/17 04:27 90 06/27/17 00:34 71 19 115/55 (75) 97 06/26/17 20:00 97.5 91 20 141/66 (91) 98 06/26/17 15:53 98.5 72 20 99/58 (72) 96 06/26/17 11:43 98.0 86 20 121/61 (81) 97 06/26/17 08:43 97.1 78 20 151/65 (93) 96 I/O 06/26/17 06/26/17 06/26/17 06/27/17 06/27/17 06/27/17 07:00 15:00 23:00 07:00 15:00 23:00 Intake Total 600 ml 720 ml 120 ml Balance 600 ml 720 ml 120 ml Intake Oral 600 ml 720 ml 120 ml # Voids 3 4 2 # Bowel Movements 0 0 Result Diagram: 06/25/17 0530 06/26/17 0700 Objective Remarks vff 5/5 t/o awake alert speech fluent pupil = Assessment and Plan Assessment and Plan imp sdh mri no mets or cva mra neg labs ok na low recheck will try 250 solumedrol for cabrera and elavil i rec change off dipro can lower sz threshold i worry about her on daily morphine as anxiety will be hard to get her off narcotics in future ct better Jordan Staton MD Jun 27, 2017 07:58
[2017-06-27] MEDS: INSULIN ASPART SUPPLEMENTAL SCALE SQ SCH ×4 (08:00→20:45)
[2017-06-27] MEDS ORDERED: methylPREDNISolone SOD SUCC 125 MG/2 ML VIAL IV ONE (08:15)
[2017-06-27] MEDS: busPIRone HCL 5 MG TAB PO SCH ×3 (08:27→18:12)
[2017-06-27] MEDS: LISINOPRIL 20 MG TAB PO SCH (08:27)
[2017-06-27] MEDS: MORPHINE SULFATE 30 MG CONTROLLED RELEASE TAB PO SCH (08:28)
[2017-06-27] MEDS: METOPROLOL TARTRATE 25 MG TAB PO SCH ×2 (08:28→20:43)
[2017-06-27] MEDS: NIFEdipine 30 MG SUSTAINED RELEASE TAB PO SCH (08:28)
[2017-06-27] MEDS: CIPROFLOXACIN 500 MG TAB PO SCH (08:28)
[2017-06-27] MEDS: FAMOTIDINE 20 MG TAB PO SCH ×2 (08:28→20:43)
[2017-06-27] MEDS: SODIUM CHLORIDE 1 GRAM TAB PO SCH (08:28)
[2017-06-27] MEDS: VENLAFAXINE HCL XR 75 MG CAP PO SCH (08:28)
[2017-06-27] MEDS: SODIUM CHLORIDE 0.9% FLUSH 10 ML FLUSH IV FLUSH SCH ×2 (08:30→20:43)
--- NOTE | 2017-06-27 11:07 | HHI.PR ---
Subjective Remarks Follow up headache, right arm pain. Patient still having pain in right shoulder/ arm. Headache is better today. No chest pain, dyspnea. Objective Vitals Vital Signs Date Time Temp Pulse Resp B/P (MAP) Pulse Ox O2 Delivery O2 Flow Rate FiO2 06/27/17 08:31 97.5 85 20 133/63 (86) 96 06/27/17 05:44 97.7 75 18 130/62 (84) 96 06/27/17 04:28 70 06/27/17 04:27 90 06/27/17 00:34 71 19 115/55 (75) 97 06/26/17 20:00 97.5 91 20 141/66 (91) 98 06/26/17 15:53 98.5 72 20 99/58 (72) 96 06/26/17 11:43 98.0 86 20 121/61 (81) 97 I/O 06/26/17 06/26/17 06/26/17 06/27/17 06/27/17 06/27/17 06:59 14:59 22:59 06:59 14:59 22:59 Intake Total 600 ml 720 ml 120 ml Balance 600 ml 720 ml 120 ml Intake Oral 600 ml 720 ml 120 ml # Voids 3 4 2 # Bowel Movements 0 0 Result Diagram: 06/25/17 0530 06/26/17 0700 Imaging Last Impressions Head CT 06/26/17 0000 Signed Impressions: Service Date/Time: Monday, June 26, 2017 15:11 - CONCLUSION: Involving right parietal subdural hematoma and small amount of intraventricular hemorrhage. Juan Pablo Samano MD Upper Extremity Ultrasound 06/24/17 0000 Signed Impressions: Service Date/Time: Saturday, June 24, 2017 21:52 - CONCLUSION: No evidence of right upper extremity DVT. Juan Pablo Samano MD Head Magnetic Resonance Angiography 06/22/17 1059 Signed Impressions: Service Date/Time: June 13:44 - CONCLUSION: 1. 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 2. Redemonstration of right subdural hematoma. 3. Otherwise, unremarkable MRA examination of the brain. Paco Murphy MD Brain MRI 06/22/17 1059 Signed Impressions: Service Date/Time: June 13:44 - CONCLUSION: Scattered areas of subdural hemorrhage right greater than left. Similar amount to the previous studies. No evidence of an acute stroke. Robbi Campos MD Objective Remarks General: Elderly female in no acute distress. HEENT: Ecchymosis on the right side of head and neck. Heart: Regular rate and rhythm. No murmur. Lungs: Clear to auscultation bilaterally. No wheezes, rales, or rhonchi. Breathing is nonlabored. Abdomen: Soft, nontender, nondistended. Extremities: No lower extremity edema. Right upper extremity swelling unchanged. Patient has better range of motion of the right upper extremity today , but still limited by pain. Psych: Alert and oriented. Procedures None Urinary Catheter: No Vascular Central Line Catheter: No A/P Problem List: (1) Intractable headache ICD Code: R51 - Headache (2) Subdural hematoma ICD Code: I62.00 - Nontraumatic subdural hemorrhage, unspecified Assessment and Plan 1. Subdural hematoma: Patient has known subdural hematoma from recent fall. CT shows evolving right-sided subdural hematoma with slight decrease in the size of intraventricular hemorrhage. No new hemorrhage or shift seen. Appreciate neurosurgery recommendations. No surgical intervention planned at this time. 2. Intractable headache: Likely secondary to subdural hematoma. Headache is better today. Continue blood pressure control, pain medication. Appreciate neurology recommendations. Repeat head CT shows no acute change. 3. Hypertension: Continue lisinopril, metoprolol, nifedipine. 4. Hyponatremia: Sodium improved. Continue sodium supplementation. Plan to discontinue sodium tablets if serum sodium reaches normal limits. Labs are pending today. 5. Hypophosphatemia: Resolved with supplementation. 6. Leukocytosis: Likely stress reaction. Improving. 7. UTI: Urine culture growing Klebsiella. Completed course of ciprofloxacin. 8. Bilateral carotid artery stenosis: Unable to proceed with revascularization procedure as patient cannot be on blood thinners due to subdural hematoma. 9. Hypothyroidism: Continue Synthroid. 10. Diabetes mellitus type 2: Monitor Accu-Cheks and cover with sliding scale insulin. 11. Right arm pain: Patient reports history of lymphedema. Ultrasound is negative for DVT. Occupational therapy evaluation. Check shoulder xray. 12. DVT prophylaxis: SCDs. Chemical prophylaxis contraindicated secondary to subdural hematoma. Discharge Planning Possible discharge to rehabilitation next 1-2 days pending further clinical improvement and neurology clearance. Jos Villalta MD Jun 27, 2017 11:07
--- NOTE | 2017-06-27 13:46 | RADRPT ---
EXAM DATE/TIME: 06/27/2017 13:25 [facility] COMPARISON: No previous studies available for comparison. INDICATIONS : Right shoulder pain, fell June 12. MEDICAL HISTORY : Gastroesophageal reflux disease. Hypertension Gallbladder disease, arthritis, diabetes, carcinom a of right breast. hx of lymphedemaa SURGICAL HISTORY : Cholecystectomy. heart valve replacement. ENCOUNTER: Initial ACUITY: 4 - 6 days PAIN SCORE: 7/10 LOCATION: Right shoulder FINDINGS: Degenerative changes AC joint with narrowing of the glenohumeral interval suggesting chronic rotator cuff tear. Fracture is not appreciated. Lung apex is clear. CONCLUSION: Negative for fracture. Probable rotator cuff tear. Kyle Kaur MD FACR on June 27, 2017 at 13:43 Board Certified Radiologist. This report was verified electronically.
[2017-06-27 16:43] LABS: CALCIUM 9.5 MG/DL (8.5-10.1); CREATININE 0.79 MG/DL (0.50-1.00)
[2017-06-27] MEDS: AMITRIPTYLINE HCL 25 MG TAB PO SCH (20:43)
[2017-06-27] MEDS: LORazepam 0.5 MG TAB PO PRN (20:43)
[2017-06-28] VITALS (9 sets, daily range): BP systolic 105–128; BP diastolic 51–61; PULSE 68–89; RESP 16–18; TEMP 97.8–98.7; O2SAT 95–100
[2017-06-28] MEDS: INSULIN ASPART SUPPLEMENTAL SCALE SQ SCH ×4 (08:01→21:00)
[2017-06-28] MEDS: busPIRone HCL 5 MG TAB PO SCH ×3 (08:03→17:58)
[2017-06-28] MEDS: SODIUM CHLORIDE 1 GRAM TAB PO SCH (08:03)
[2017-06-28] MEDS: NIFEdipine 30 MG SUSTAINED RELEASE TAB PO SCH (08:04)
[2017-06-28] MEDS: VENLAFAXINE HCL XR 75 MG CAP PO SCH (08:04)
[2017-06-28] MEDS: MORPHINE SULFATE 30 MG CONTROLLED RELEASE TAB PO SCH (08:04)
[2017-06-28] MEDS: METOPROLOL TARTRATE 25 MG TAB PO SCH ×2 (08:04→21:00)
[2017-06-28] MEDS: LISINOPRIL 20 MG TAB PO SCH (08:04)
[2017-06-28] MEDS: FAMOTIDINE 20 MG TAB PO SCH ×2 (08:04→21:45)
[2017-06-28] MEDS: SODIUM CHLORIDE 0.9% FLUSH 10 ML FLUSH IV FLUSH SCH ×2 (08:05→21:00)
--- NOTE | 2017-06-28 08:26 | HHI.PR ---
Subjective Remarks bp betterminimal cabrera now Objective Vital Signs Date Time Temp Pulse Resp B/P (MAP) Pulse Ox O2 Delivery O2 Flow Rate FiO2 06/28/17 04:23 71 06/28/17 04:00 98.0 71 18 120/57 (78) 98 06/28/17 00:00 98.0 77 18 122/61 (81) 95 06/27/17 20:00 98.9 88 18 139/65 (89) 100 06/27/17 20:00 90 06/27/17 15:45 97.1 81 20 125/60 (81) 95 06/27/17 11:27 97.1 72 20 112/54 (73) 96 06/27/17 08:31 97.5 85 20 133/63 (86) 96 I/O 06/27/17 06/27/17 06/27/17 06/28/17 06/28/17 06/28/17 07:00 15:00 23:00 07:00 15:00 23:00 Intake Total 120 ml 360 ml Balance 120 ml 360 ml Intake Oral 120 ml 360 ml # Voids 2 3 3 # Bowel Movements 0 Result Diagram: 06/25/17 0530 06/27/17 1528 Objective Remarks vff 5/5 t/o awake alert speech fluent pupil = Assessment and Plan Assessment and Plan imp sdh mri no mets or cva mra neg labs ok na low recheck will try 250 solumedrol for cabrera and elavil i rec change off dipro can lower sz threshold i worry about her on daily morphine as anxiety will be hard to get her off narcotics in future ct better --- 06/28/17 cabrera better this am i dced daily mso4 elavil will obs Jordan Staton MD Jun 28, 2017 08:26
[2017-06-28 10:12] LABS: AUTOMATED NEUTROPHIL # 12.7 TH/MM3 (1.8-7.7); BASOPHIL % 0.2 % (0.0-2.0); EOSINOPHIL # 0.1 TH/MM3 (0-0.4); EOSINOPHIL % 0.4 % (0.0-4.0); HEMATOCRIT 38.1 % (35.0-46.0); HEMOGLOBIN 12.8 GM/DL (11.6-15.3); LYMPH % 10.8 % (9.0-44.0); LYMPHOCYTE # 1.6 TH/MM3 (1.0-4.8); MEAN CELL VOLUME 94.6 FL (80.0-100.0); MEAN CORPUSCULAR HEMOGLOBIN 31.7 PG (27.0-34.0); MEAN CORPUSCULAR HGB CONC 33.5 % (32.0-36.0); MEAN PLATELET VOLUME 12.1 FL (7.0-11.0); MONO % 4.9 % (0.0-8.0); MONOCYTE # 0.7 TH/MM3 (0-0.9); NEUT % 83.7 % (16.0-70.0); PLATELET COUNT 90 TH/MM3 (150-450); RED BLOOD COUNT 4.03 MIL/MM3 (4.00-5.30); WHITE BLOOD COUNT 15.1 TH/MM3 (4.0-11.0)
[2017-06-28 10:41] LABS: BICARBONATE 27.6 MEQ/L (21.0-32.0); CALCIUM 9.3 MG/DL (8.5-10.1); CREATININE 0.66 MG/DL (0.50-1.00)
[2017-06-28] MEDS ORDERED: BISACODYL 10 MG SUPP RECTAL PRN (11:15)
[2017-06-28] MEDS ORDERED: SENNOSIDES 8.6 MG TAB PO PRN (11:15)
[2017-06-28] MEDS ORDERED: MAGNESIUM HYDROXIDE SUSP 30 ML CUP PO PRN (11:15)
[2017-06-28] MEDS ORDERED: LACTULOSE SYRUP 20 GM/30 ML CUP PO PRN (11:15)
--- NOTE | 2017-06-28 11:15 | HHI.PR ---
Subjective Remarks Follow up headache, right arm pain. Patient states that her headache is improved. Still with right arm pain, weakness. Objective Vitals Vital Signs Date Time Temp Pulse Resp B/P (MAP) Pulse Ox O2 Delivery O2 Flow Rate FiO2 06/28/17 09:15 97.8 68 17 128/61 (83) 97 06/28/17 04:23 71 06/28/17 04:00 98.0 71 18 120/57 (78) 98 06/28/17 00:00 98.0 77 18 122/61 (81) 95 06/27/17 20:00 98.9 88 18 139/65 (89) 100 06/27/17 20:00 90 06/27/17 15:45 97.1 81 20 125/60 (81) 95 06/27/17 11:27 97.1 72 20 112/54 (73) 96 I/O 06/27/17 06/27/17 06/27/17 06/28/17 06/28/17 06/28/17 07:00 15:00 23:00 07:00 15:00 23:00 Intake Total 120 ml 360 ml Balance 120 ml 360 ml Intake Oral 120 ml 360 ml # Voids 2 3 3 # Bowel Movements 0 Result Diagram: 06/28/17 0930 06/28/17 0930 Imaging Last Impressions Shoulder X-Ray 06/27/17 0000 Signed Impressions: Service Date/Time: Tuesday, June 27, 2017 13:25 - CONCLUSION: Negative for fracture. Probable rotator cuff tear. Kyle Kaur MD FACR Head CT 06/26/17 0000 Signed Impressions: Service Date/Time: Monday, June 26, 2017 15:11 - CONCLUSION: Involving right parietal subdural hematoma and small amount of intraventricular hemorrhage. Juan Pablo Samano MD Upper Extremity Ultrasound 06/24/17 0000 Signed Impressions: Service Date/Time: Saturday, June 24, 2017 21:52 - CONCLUSION: No evidence of right upper extremity DVT. Juan Pablo Samano MD Head Magnetic Resonance Angiography 06/22/17 1059 Signed Impressions: Service Date/Time: June 13:44 - CONCLUSION: 1. 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 2. Redemonstration of right subdural hematoma. 3. Otherwise, unremarkable MRA examination of the brain. Paco Murphy MD Brain MRI 06/22/17 1059 Signed Impressions: Service Date/Time: June 13:44 - CONCLUSION: Scattered areas of subdural hemorrhage right greater than left. Similar amount to the previous studies. No evidence of an acute stroke. Robbi Campos MD Objective Remarks General: Elderly female in no acute distress. HEENT: Ecchymosis on the right side of head and neck. Heart: Regular rate and rhythm. No murmur. Lungs: Clear to auscultation bilaterally. No wheezes, rales, or rhonchi. Breathing is nonlabored. Abdomen: Soft, nontender, nondistended. Extremities: No lower extremity edema. Right upper extremity swelling unchanged. Patient has better range of motion of the right upper extremity. Psych: Alert and oriented. Procedures None Urinary Catheter: No Vascular Central Line Catheter: No A/P Problem List: (1) Intractable headache ICD Code: R51 - Headache (2) Subdural hematoma ICD Code: I62.00 - Nontraumatic subdural hemorrhage, unspecified Assessment and Plan 1. Subdural hematoma: Patient has known subdural hematoma from recent fall. CT shows evolving right-sided subdural hematoma with slight decrease in the size of intraventricular hemorrhage. No new hemorrhage or shift seen. Appreciate neurosurgery recommendations. No surgical intervention planned at this time. 2. Intractable headache: Likely secondary to subdural hematoma. Headache is improved. Continue blood pressure control. Appreciate neurology recommendations. Repeat head CT shows no acute change. Daily morphine discontinued by neurology. 3. Hypertension: Continue lisinopril, metoprolol, nifedipine. 4. Hyponatremia: Sodium improved. Continue sodium supplementation. Plan to discontinue sodium tablets if serum sodium reaches normal limits. Labs are pending today. 5. Hypophosphatemia: Resolved with supplementation. 6. Leukocytosis: WBCs increased today, likely due to steroids. 7. UTI: Urine culture growing Klebsiella. Completed course of ciprofloxacin. 8. Bilateral carotid artery stenosis: Unable to proceed with revascularization procedure as patient cannot be on blood thinners due to subdural hematoma. 9. Hypothyroidism: Continue Synthroid. 10. Diabetes mellitus type 2: Monitor Accu-Cheks and cover with sliding scale insulin. 11. Right arm pain: Patient reports history of lymphedema. Ultrasound is negative for DVT. Occupational therapy evaluation. Shoulder x-ray shows no fracture, but likely rotator cuff injury. 12. DVT prophylaxis: SCDs. Chemical prophylaxis contraindicated secondary to subdural hematoma. 13. Constipation: Bowel regimen. Discharge Planning Possible discharge to rehabilitation tomorrow. Jos Villalta MD Jun 28, 2017 11:15
[2017-06-28] MEDS: DOCUSATE SODIUM 50 MG/SENNA 8.6 MG TAB PO SCH ×2 (12:11→21:45)
[2017-06-28] MEDS: AMITRIPTYLINE HCL 25 MG TAB PO SCH (21:45)
[2017-06-29 01:41] VITALS: BP 122/59; PULSE 76; RESP 18; TEMP 98.1; O2SAT 98
[2017-06-29 05:45] LABS: AUTOMATED NEUTROPHIL # 7.5 TH/MM3 (1.8-7.7); BASOPHIL # 0.1 TH/MM3 (0-0.2); EOSINOPHIL # 0.2 TH/MM3 (0-0.4); EOSINOPHIL % 1.6 % (0.0-4.0); LYMPH % 19.9 % (9.0-44.0); LYMPHOCYTE # 2.2 TH/MM3 (1.0-4.8); MEAN CELL VOLUME 94.2 FL (80.0-100.0); MEAN CORPUSCULAR HEMOGLOBIN 31.4 PG (27.0-34.0); MEAN CORPUSCULAR HGB CONC 33.4 % (32.0-36.0); MEAN PLATELET VOLUME 11.3 FL (7.0-11.0); MONO % 9.7 % (0.0-8.0); MONOCYTE # 1.1 TH/MM3 (0-0.9); NEUT % 67.8 % (16.0-70.0); PLATELET COUNT 92 TH/MM3 (150-450); RED BLOOD COUNT 4.14 MIL/MM3 (4.00-5.30); RED CELL DISTRIBUTION WIDTH 15.4 % (11.6-17.2)
[2017-06-29 05:59] VITALS: BP 118/66; PULSE 92; RESP 16; TEMP 98; O2SAT 98
[2017-06-29 06:11] LABS: BICARBONATE 26.5 MEQ/L (21.0-32.0); CALCIUM 8.8 MG/DL (8.5-10.1); CREATININE 0.61 MG/DL (0.50-1.00)
--- NOTE | 2017-06-29 07:25 | HHI.PR ---
Subjective Remarks bp better / cabrera now 11/09 Objective Vital Signs Date Time Temp Pulse Resp B/P (MAP) Pulse Ox O2 Delivery O2 Flow Rate FiO2 06/29/17 05:59 98.0 92 16 118/66 (83) 98 06/29/17 01:41 98.1 76 18 122/59 (80) 98 06/28/17 23:00 88 06/28/17 20:25 98.1 88 16 105/51 (69) 98 06/28/17 18:56 89 06/28/17 18:39 98.1 80 18 125/61 (82) 100 06/28/17 13:19 98.7 70 18 122/61 (81) 98 06/28/17 09:15 97.8 68 17 128/61 (83) 97 I/O 06/28/17 06/28/17 06/28/17 06/29/17 06/29/17 06/29/17 07:00 15:00 23:00 07:00 15:00 23:00 Intake Total 480 ml Balance 480 ml Intake Oral 480 ml # Voids 3 Result Diagram: 06/29/1752606/29/17526 Objective Remarks vff 5/5 t/o awake alert speech fluent pupil = nad Assessment and Plan Assessment and Plan imp sdh mri no mets or cva mra neg labs ok na low recheck will try 250 solumedrol for cabrera and elavil i rec change off dipro can lower sz threshold i worry about her on daily morphine as anxiety will be hard to get her off narcotics in future ct better --- 06/28/17 cabrera better this am i dced daily mso4 elavil will obs 06/29/17 glu ok another steroid dose then dc home and fu my office next week dc on the elavil Jordan Staton MD Jun 29, 2017 07:25
[2017-06-29] MEDS ORDERED: methylPREDNISolone SOD SUCC 125 MG/2 ML VIAL IV ONE (08:00)
[2017-06-29] MEDS: INSULIN ASPART SUPPLEMENTAL SCALE SQ SCH ×2 (08:00→12:00)
[2017-06-29 08:15] VITALS: BP 122/58; PULSE 90; RESP 16; TEMP 97.4; O2SAT 96
[2017-06-29] MEDS: SODIUM CHLORIDE 0.9% FLUSH 10 ML FLUSH IV FLUSH SCH (09:00)
--- NOTE | 2017-06-29 09:01 | HHI.FF ---
Face to Face Verification Diagnosis: (1) Intractable headache (2) Subdural hematoma (3) Acute headache secondary to trauma (4) Fall Physical Therapy Order: Evaluate and Treat Home Health Nursing Order: Nursing assessment with vital signs I have seen patient Berenice Rosario on 06/29/17. My clinical findings support the need for the requested home health care services because: High risk of falls I certify that my clinical findings support that this patient is homebound because: Unsteady gait/balance Jos Villalta MD Jun 29, 2017 09:01
[2017-06-29] MEDS ORDERED: METO25TA3 PO (09:05)
[2017-06-29] MEDS ORDERED: AMIT25TA9 PO (09:05)
[2017-06-29] MEDS ORDERED: NIFE30TA8 PO (09:05)
--- NOTE | 2017-06-29 09:06 | HHI.DCPOC ---
Discharge Care Plan Diagnosis: (1) Hypertension (2) Hyponatremia (3) Leukocytosis (4) UTI (urinary tract infection) (5) Hypothyroidism (6) Diabetes mellitus (7) Right arm pain (8) Fall (9) Intractable headache (10) Subdural hematoma Goals to Promote Your Health * To prevent worsening of your condition and complications * To maintain your health at the optimal level Directions to Meet Your Goals Take your medications as prescribed Follow your dietary instruction Follow activity as directed Keep your appointments as scheduled Take your immunizations and boosters as scheduled If your symptoms worsen call your PCP, if no PCP go to Urgent Care Center or Emergency Room Smoking is Dangerous to Your Health. Avoid second hand smoke Call the 24-hour hour crisis hotline for domestic abuse at Jos Villalta MD Jun 29, 2017 09:06
[2017-06-29] MEDS: DOCUSATE SODIUM 50 MG/SENNA 8.6 MG TAB PO SCH (09:11)
[2017-06-29] MEDS: METOPROLOL TARTRATE 25 MG TAB PO SCH (09:11)
[2017-06-29] MEDS: SODIUM CHLORIDE 1 GRAM TAB PO SCH (09:11)
[2017-06-29] MEDS: VENLAFAXINE HCL XR 75 MG CAP PO SCH (09:12)
[2017-06-29] MEDS: busPIRone HCL 5 MG TAB PO SCH ×2 (09:12→13:37)
[2017-06-29] MEDS: FAMOTIDINE 20 MG TAB PO SCH (09:12)
[2017-06-29] MEDS: LISINOPRIL 20 MG TAB PO SCH (09:12)
[2017-06-29] MEDS: NIFEdipine 30 MG SUSTAINED RELEASE TAB PO SCH (09:12)
--- NOTE | 2017-06-29 09:12 | HHI.FF ---
Face to Face Verification Diagnosis: (1) Right arm pain (2) Fall (3) Intractable headache (4) Subdural hematoma Physical Therapy Order: Evaluate and Treat Occupational Therapy Order: Evaluate and Treat Home Health Nursing Order: Nursing assessment with vital signs I have seen patient Berenice Rosario on 06/29/17. My clinical findings support the need for the requested home health care services because: Limited ability to care for self High risk of falls I certify that my clinical findings support that this patient is homebound because: Unsteady gait/balance Jos Villalta MD Jun 29, 2017 09:12
--- NOTE | 2017-06-29 09:13 | HHI.DS ---
Discharge Summary Admission Date Jun 21, 2017 at 17:46 Discharge Date: Jun 29, 2017 Admitting Diagnosis intractable headache (1) Intractable headache ICD Code: R51 - Headache (2) Subdural hematoma ICD Code: I62.00 - Nontraumatic subdural hemorrhage, unspecified Procedures None Brief History - From Admission 67-year-old female with past medical history of HTN, diabetes, aortic valve replacement, A. fib, COPD, CKD, TIA, hypothyroidism, RA, and history of breast cancer. Patient was previously hospitalized here at [facility] and cared under trauma services following a fall at home which resulted in subdural hematoma. At the time of trauma patient was on aspirin and Plavix due to history of A. fib , and bilateral carotid artery stenosis. She was admitted and followed by neurosurgery during her hospitalization, for which there was no surgical intervention. Patient was discharged to nursing facility she has been saying since the day of her discharge from [facility] which was on 06/18. She returns to the emergency department due to ongoing headaches which pain medication has not provided any relief. was at bedside as well as patient states that headaches have been the same since her initial trauma and hospitalization and have never really gone away. She rates pain 9-10/10 and states that pain is on her right side of her head. She has also been having nausea with no vomiting but just dry heaving. believes this might be related to the fact that patient has been taking morphine and Percocet an empty stomach. Denies any fevers, chills, redness of breath, abdominal pain, or diarrhea. Patient does endorse double vision at times as well as dizziness with standing. She also complains of right sided breast pain. She reports that she has a history of breast cancer for which she underwent right breast lumpectomy 5 years ago. reports that patient was due to have bilateral carotid endarterectomy due to carotid artery stenosis however has been unable to take blood thinners due to subdural hematoma. At the moment of my exam patient is in visible comfort due to pain, she is requesting something for pain relief. She also reports that at home she was on BuSpar and Venlafaxine for anxiety and previously was on Xanax. CBC/BMP: 06/29/17 0527 06/29/17 0527 Significant Findings Laboratory Tests Test 06/27/17 15:28 06/28/17 09:30 06/29/17 05:27 Random Glucose 189 MG/DL (74-106) 155 MG/DL (74-106) Sodium Level 128 MEQ/L (136-145) 134 MEQ/L (136-145) 134 MEQ/L (136-145) Chloride Level 92 MEQ/L (98-107) 97 MEQ/L (98-107) Estimat Glomerular Filtration Rate 73 ML/MIN (>89) White Blood Count 15.1 TH/MM3 (4.0-11.0) Platelet Count 90 TH/MM3 (150-450) 92 TH/MM3 (150-450) Mean Platelet Volume 12.1 FL (7.0-11.0) 11.3 FL (7.0-11.0) Neutrophils (%) (Auto) 83.7 % (16.0-70.0) Neutrophils # (Auto) 12.7 TH/MM3 (1.8-7.7) Monocytes (%) (Auto) 9.7 % (0.0-8.0) Monocytes # (Auto) 1.1 TH/MM3 (0-0.9) Platelet Estimate LOW (NORMAL) Platelet Morphology Comment ENLARGED (NORMAL) Imaging Last Impressions Shoulder X-Ray 06/27/17 0000 Signed Impressions: Service Date/Time: Tuesday, June 27, 2017 13:25 - CONCLUSION: Negative for fracture. Probable rotator cuff tear. Kyle Kaur MD FACR Head CT 06/26/17 0000 Signed Impressions: Service Date/Time: Monday, June 26, 2017 15:11 - CONCLUSION: Involving right parietal subdural hematoma and small amount of intraventricular hemorrhage. Juan Pablo Samano MD Upper Extremity Ultrasound 06/24/17 0000 Signed Impressions: Service Date/Time: Saturday, June 24, 2017 21:52 - CONCLUSION: No evidence of right upper extremity DVT. Juan Pablo Samano MD Head Magnetic Resonance Angiography 06/22/17 1059 Signed Impressions: Service Date/Time: June 13:44 - CONCLUSION: 1. 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 2. Redemonstration of right subdural hematoma. 3. Otherwise, unremarkable MRA examination of the brain. Paco Murphy MD Brain MRI 06/22/17 1059 Signed Impressions: Service Date/Time: June 13:44 - CONCLUSION: Scattered areas of subdural hemorrhage right greater than left. Similar amount to the previous studies. No evidence of an acute stroke. Robbi Campos MD PE at Discharge General: Elderly female in no acute distress. HEENT: Ecchymosis on the right side of head and neck. Heart: Regular rate and rhythm. No murmur. Lungs: Clear to auscultation bilaterally. No wheezes, rales, or rhonchi. Breathing is nonlabored. Abdomen: Soft, nontender, nondistended. Extremities: No lower extremity edema. Right upper extremity swelling unchanged. Range of motion of the right upper extremity is improving. Psych: Alert and oriented. Pt update on day of discharge The patient states that she feels tired. Headache is better. Right arm pain is improving. She was evaluated this morning by neurology and was given another dose of Solu-Medrol. She was cleared for discharge home with home health care by neurology. Hospital Course The patient was admitted for further evaluation and management of intractable headache, secondary to subdural hematoma. Neurosurgery and neurology were consulted. Pain control was continued. Physical therapy and occupational therapy evaluated the patient. The patient was placed on sodium tablets for hyponatremia. Sodium did improve. The patient was given IV Solu-Medrol. There was improvement in her headache. She continued to improve clinically, she was cleared for discharge by neurology. Recommendation from physical therapy and occupational therapy was SNF/rehabilitation. The patient's insurance company declined authorization for jail facility and the patient agreed to home health care for physical therapy, occupational therapy, nursing. Pt Condition on Discharge: Stable Discharge Disposition: Disch w/ Home Health Serv Discharge Time: > 30 minutes Discharge Instructions DIET: Follow Instructions for: Heart Healthy Diet Activities you can perform: Regular-No Restrictions Follow up Referrals: Neurology - 07/04/17 with Jordan Staton MD PCP Follow-up - 1 Week with Juan Kraft Md New Medications: Amitriptyline (Amitriptyline) 25 Mg Tab 25 MG PO HS for Headaches, #30 TAB 0 Refills Metoprolol Tartrate (Metoprolol Tartrate) 25 Mg Tab 25 MG PO Q12HR for Blood Pressure Management, #60 TAB 0 Refills Nifedipine ER 24 HR (Nifedipine ER 24 HR) 30 Mg Tab 30 MG PO DAILY for Blood Pressure Management, #30 TAB 0 Refills Continued Medications: Buspirone (Buspirone) 5 Mg Tab 5 MG PO TID for Anxiety, TAB 0 Refills Folic Acid (Folic Acid) 0.4 Mg Tab 1 MG PO DAILY for Nutritional Supplement, TAB 0 Refills except on day of methotrexate Lisinopril (Lisinopril) 40 Mg Tab 40 MG PO DAILY for Blood Pressure Management, #30 TAB 0 Refills Metformin (Metformin) 500 Mg Tab 500 MG PO BID for Blood Sugar Management, #60 TAB 0 Refills Montelukast (Montelukast) 10 Mg Tab 10 MG PO DAILY, #30 TAB 0 Refills Ondansetron (Ondansetron) 8 Mg Tab 4 MG PO TID for Nausea/Vomiting, TAB 0 Refills Sumatriptan (Imitrex) 25 Mg Tab 25 MG PO BID PRN for MIGRAINE HEADACHE, #30 TAB 0 Refills If a satisfactory response has not been obtained at 2 hours, a second dose may be administered Venlafaxine ER 24 HR (Venlafaxine ER 24 HR) 150 Mg Cap 150 MG PO DAILY, #30 CAP 0 Refills [methotrexate] () Discontinued Medications: Aspirin DR (Aspirin 81) 81 Mg Tabdr 81 MG PO DAILY, TAB 0 Refills Clopidogrel (Clopidogrel) 75 Mg Tab 75 MG PO DAILY for Blood Clot Prevention, #30 TAB 0 Refills Metoprolol Tartrate (Metoprolol Tartrate) 50 Mg Tab 50 MG PO DAILY, #30 TAB 0 Refills Morphine Sulfate ER 12 HR (Morphabond ER 12 HR) 30 Mg Tab 30 MG PO DAILY, TAB 0 Refills Oxycodone HCl/Acetaminophen (Oxycodone-Acetaminophen 5-325) 5 Mg-325 Mg Tablet 1-2 TAB PO Q4H PRN for pain, #30 TAB Spironolactone (Spironolactone) 25 Mg Tab 25 MG PO DAILY, #30 TAB 0 Refills Trazodone (Trazodone) 50 Mg Tab 50 MG PO HS for Insomnia, #30 TAB [ayr nasal mist] () [trazodone] () Jos Villalta MD Jun 29, 2017 09:13
[2017-06-29] MEDS ORDERED: WALKER WHEELS/F1 MIS (10:58)
[2017-06-29] MEDS ORDERED: BEDSIDE COMMODE1 MI1 (10:58)
[2017-06-29 11:57] VITALS: BP 115/55; PULSE 83; RESP 16; TEMP 98.2; O2SAT 98
== END 2017-06-29 14:57 | disposition home health service (06) | DRG 83 ==
LOC: NEPE 11:15 → NEDA 16:55 → MERGE 17:46 → OBSVTOIN 17:46 → NEDH 22:52 → N05B 06-22 11:14
PROVIDERS: ADMIT Family Medicine; ATTEND Family Medicine
DX: S06.5X9A Traumatic subdural hemorrhage with loss of consciousness of unspecified duration, initial encounter (principal); E87.1 Hypo-osmolality and hyponatremia; E11.22 Type 2 diabetes mellitus with diabetic chronic kidney disease; D69.6 Thrombocytopenia, unspecified; E83.39 Other disorders of phosphorus metabolism; N39.0 Urinary tract infection, site not specified; I48.91 Unspecified atrial fibrillation; I65.23 Occlusion and stenosis of bilateral carotid arteries; J44.9 Chronic obstructive pulmonary disease, unspecified; I12.9 Hypertensive chronic kidney disease with stage 1 through stage 4 chronic kidney disease, or unspecified chronic kidney disease; N18.2 Chronic kidney disease, stage 2 (mild); E03.9 Hypothyroidism, unspecified; K21.9 Gastro-esophageal reflux disease without esophagitis; D72.829 Elevated white blood cell count, unspecified; K59.00 Constipation, unspecified; M06.9 Rheumatoid arthritis, unspecified; G44.311 Acute post-traumatic headache, intractable; I89.0 Lymphedema, not elsewhere classified; B96.1 Klebsiella pneumoniae [K. pneumoniae] as the cause of diseases classified elsewhere; T38.0X5A Adverse effect of glucocorticoids and synthetic analogues, initial encounter; F41.9 Anxiety disorder, unspecified; W10.8XXA Fall (on) (from) other stairs and steps, initial encounter; Y92.009 Unspecified place in unspecified non-institutional (private) residence as the place of occurrence of the external cause; Z79.82 Long term (current) use of aspirin; Z79.84 Long term (current) use of oral hypoglycemic drugs; Z86.73 Personal history of transient ischemic attack (TIA), and cerebral infarction without residual deficits; Z85.3 Personal history of malignant neoplasm of breast; Z88.5 Allergy status to narcotic agent; Z87.891 Personal history of nicotine dependence; Z90.710 Acquired absence of both cervix and uterus; Z92.21 Personal history of antineoplastic chemotherapy; Z91.81 History of falling; Z95.2 Presence of prosthetic heart valve; Z79.899 Other long term (current) drug therapy
CPT/HCPCS: 70450; 70544; 70553; 73030; 76937; 80048; 80053; 80069; 81001; 82607; 82948; 83735; 83930; 83935; 84100; 84295; 84300; 84425; 84439; 84443; 85025; 85610; 85652; 85730; 87077; 87086; 87186; 93005; 93971; 96374; 96375; 96376; A9579; J0360; J1100; J1815; J2060; J2270; J2405; J2930; J7030